=== PATIENT | male | born 1940 | race Caucasian/White ===

== ENCOUNTER 2017-08-25 07:49 | Inpatient (IN) | payer MEDICARE, BC ==
[~2017-08-25] VITALS: Ht 170.2 cm; Wt 74.3 kg
[2017-08-25 08:46] LABS: BASOPHILS # (AUTO) 0.1 X10'3 (0-0.2); BASOPHILS % (AUTO) 0.6 % (0-1); EOSINOPHILS % (AUTO) 0 % (0-6); HEMATOCRIT 31.5 % (42.0-52.0); HEMOGLOBIN 10.6 g/dl (14.0-17.9); LYMPHOCYTES # (AUTO) 0.9 X10'3 (1.1-4.8); LYMPHOCYTES % (AUTO) 3.9 % (21-51); MEAN CORPUSCULAR HEMOGLOBIN 30.4 PG (27.0-31.0); MEAN CORPUSCULAR HGB CONC 33.6 % (33.0-36.5); MEAN CORPUSCULAR VOLUME 90.6 FL (78-98); MEAN PLATELET VOLUME 8.8 FL (7.4-10.4); MONOCYTES # (AUTO) 1.5 X10'3 (0-0.9); MONOCYTES % (AUTO) 6.7 % (2-12); NEUTROPHILS # (AUTO) 19.7 X10'3 (1.8-7.7); NEUTROPHILS % (AUTO) 88.8 % (42-75); PLATELET COUNT 301 X10'3 (140-440); RED BLOOD COUNT 3.48 X10'6 (4.70-6.10); RED CELL DISTRIBUTION WIDTH 15.3 % (11.5-14.5); WHITE BLOOD COUNT 22.2 X10'3 (4.5-11.0)
[2017-08-25 09:04] LABS: INR 1.2 INR; PARTIAL THROMBOPLASTIN TIME 21 SECONDS (22-32); PROTHROMBIN TIME 12.3 SECONDS (9.0-12.0)
[2017-08-25 09:07] LABS: ALANINE AMINOTRANSFERASE 419 U/L (12-78); ALBUMIN 2.7 G/DL (3.4-5.0); ALBUMIN/GLOBULIN RATIO 0.8 (1.1-1.5); ALKALINE PHOSPHATASE 78 IU/L (46-116); ANION GAP 15 (8-16); ASPARTATE AMINO TRANSFERASE 303 U/L (10-37); BILIRUBIN,TOTAL 1.2 MG/DL (0.1-1.0); BLOOD UREA NITROGEN 26 MG/DL (7-18); BUN/CREATININE RATIO 16.7 (5.4-32.0); CALCIUM 8.1 MG/DL (8.5-10.1); CHLORIDE 101 MMOL/L (99-107); CREATININE 1.56 MG/DL (0.60-1.10); GLUCOSE 106 MG/DL (70-104); POTASSIUM 4.1 MMOL/L (3.5-5.1); SODIUM 142 MMOL/L (135-145); TOTAL CARBON DIOXIDE 26.2 MMOL/L (24-32); TOTAL PROTEIN 6.3 G/DL (6.4-8.2); eGFR 43 ML/MIN
[2017-08-25 09:16] LABS: ETHANOL < 0.010 GM/DL (0.0-0.010); MAGNESIUM 2.1 MG/DL (1.5-2.4)
[2017-08-25 09:40] LABS: URINE AMPHETAMINE SCREEN NEGATIVE (Neg); URINE BARBITUATE SCREEN NEGATIVE (Neg); URINE BENZODIAZEPINES SCREEN NEGATIVE (Neg); URINE CANNABINOID SCREEN NEGATIVE (Neg); URINE COCAINE SCREEN NEGATIVE (Neg); URINE METHADONE SCREEN NEGATIVE (Neg); URINE OPIATE SCREEN POSITIVE (Neg); URINE PHENCYCLIDINE SCREEN NEGATIVE (Neg)
[2017-08-25 09:43] LABS: CLARITY,URINE CLEAR (Clear); COLOR,URINE YELLOW (Yellow); GLUCOSE, URINE NEGATIVE (Neg); KETONES,URINE 15 mg/dl (Neg); LEUKOCYTE ESTERASE ,URINE NEGATIVE (Neg); NITRITES, URINE NEGATIVE (Neg); OCCULT BLOOD,URINE TRACE-LYSED (Neg); PH,URINE 5.5 (4.8-8.0); PROTEIN,URINE 30 mg/dl (Neg); UROBILINOGEN,URINE 0.2 E.U/dL (0.2-1.0)
[2017-08-25 09:48] LABS: UA COLLECTION TYPE URINAL
[2017-08-25 09:50] LABS: SQUAMOUS EPITHELIAL CELL,UR FEW /LPF (FEW)
[2017-08-25 09:51] LABS: BACTERIA,URINE FEW /HPF (Neg); FINE GRANULAR CAST 0-3 /LPF (NEGATIVE); MUCUS STRANDS MODERATE /LPF (Neg); RBC,URINE 0-2 /HPF (0-2); WBC,URINE 0-4 /HPF (0-4)
[2017-08-25] MEDS ORDERED: magnesium Cl slow-release 64mg tablet PO PRN (10:10)
[2017-08-25] MEDS ORDERED: potassium Cl 20 mEq SR tablet PO PRN (10:10)
[2017-08-25] MEDS ORDERED: magnesium hydroxide 30ml (MOM) UD suspension PO PRN (10:10)
[2017-08-25] MEDS ORDERED: potassium Cl 40MEQ/NS 500ml 500 ML IV PRN ×2 (10:10)
[2017-08-25] MEDS ORDERED: magnesium/D5W IVPB 100 ML IV PRN (10:10)
[2017-08-25] MEDS ORDERED: magnesium 4gm in 100ml NS 100 ML IV PRN (10:10)
[2017-08-25] MEDS ORDERED: mag hydrox/Alum hydrox/simeth 30ml oral suspension PO PRN (10:10)
[2017-08-25] MEDS ORDERED: acetaminophen 325mg tablet PO PRN (10:10)
[2017-08-25] MEDS ORDERED: ondansetron/PF 4mg/2ml inj IV PRN (10:10)
[2017-08-25] MEDS: K and/or MAG REPLACEMENT MC SCH (10:18)
[2017-08-25] MEDS: normal saline 1000ml 1,000 ML IV SCH (10:44)
[2017-08-25 16:10] VITALS: BP 127/93
[2017-08-25 18:00] VITALS: BP 110/72
[2017-08-25] MEDS: acetylcysteine 200 MG/ml 4ml vial PO SCH (20:06)
[2017-08-25] MEDS: carVEDilol 3.125mg tablet PO SCH (20:06)
[2017-08-25 20:10] LABS: HEMATOCRIT 29.6 % (42.0-52.0); HEMOGLOBIN 9.3 g/dl (14.0-17.9); MEAN CORPUSCULAR HGB CONC 31.3 % (33.0-36.5); MEAN CORPUSCULAR VOLUME 89.6 FL (78-98); MEAN PLATELET VOLUME 9.1 FL (7.4-10.4); PLATELET COUNT 260 X10'3 (140-440); RED BLOOD COUNT 3.31 X10'6 (4.70-6.10); RED CELL DISTRIBUTION WIDTH 15.5 % (11.5-14.5); WHITE BLOOD COUNT 18.2 X10'3 (4.5-11.0)
[2017-08-25] MEDS: atorvastatin 10mg tablet PO SCH (20:11)
[2017-08-25 20:24] LABS: TOTAL CARBON DIOXIDE 26.8 MMOL/L (24-32)
[2017-08-25 20:26] LABS: ACETAMINOPHEN < 2.0 UG/ML (10-30)
[2017-08-25] MEDS ORDERED: SIMV40TA4 PO (20:36)
[2017-08-25] MEDS ORDERED: LEVO137T2 PO (20:37)
[2017-08-25] MEDS ORDERED: AMLO5TAB4 PO (20:38)
[2017-08-25] MEDS ORDERED: NITR0.4T SL (20:38)
[2017-08-25] MEDS ORDERED: OMEP20TA23 PO (20:39)
[2017-08-25] MEDS ORDERED: LOSA100T28 PO (20:39)
[2017-08-25 20:40] VITALS: BP 120/83
[2017-08-25] MEDS ORDERED: BACL10TA PO (20:40)
[2017-08-25] MEDS ORDERED: METO25TA6 PO (20:40)
[2017-08-25] MEDS ORDERED: pravastatin 10mg tablet PO SCH (21:00)
[2017-08-25] MEDS ORDERED: heparin 10,000 units/1 ML INJ IV ONE (21:30)
[2017-08-25 22:00] VITALS: BP 108/81
[2017-08-25 22:13] LABS: BASOPHILS % (AUTO) 0.2 % (0-1); EOSINOPHILS # (AUTO) 0.2 X10'3 (0-0.9); EOSINOPHILS % (AUTO) 1.5 % (0-6); HEMATOCRIT 27.5 % (42.0-52.0); HEMOGLOBIN 9.1 g/dl (14.0-17.9); LYMPHOCYTES # (AUTO) 1.3 X10'3 (1.1-4.8); LYMPHOCYTES % (AUTO) 8.6 % (21-51); MEAN CORPUSCULAR HEMOGLOBIN 29.4 PG (27.0-31.0); MEAN CORPUSCULAR VOLUME 89.3 FL (78-98); NEUTROPHILS # (AUTO) 11.6 X10'3 (1.8-7.7); NEUTROPHILS % (AUTO) 76.7 % (42-75); PLATELET COUNT 253 X10'3 (140-440); RED BLOOD COUNT 3.08 X10'6 (4.70-6.10); RED CELL DISTRIBUTION WIDTH 16.1 % (11.5-14.5); WHITE BLOOD COUNT 15.1 X10'3 (4.5-11.0)
[2017-08-25 22:25] LABS: INR 1.2 INR; PARTIAL THROMBOPLASTIN TIME 28 SECONDS (22-32); PROTHROMBIN TIME 12.2 SECONDS (9.0-12.0)
[2017-08-25] MEDS: temazepam 15mg capsule PO PRN (23:03)
[2017-08-26 02:00] VITALS: BP 129/87
[2017-08-26 05:45] LABS: BASOPHILS % (AUTO) 0.1 % (0-1); EOSINOPHILS # (AUTO) 0.3 X10'3 (0-0.9); EOSINOPHILS % (AUTO) 1.9 % (0-6); HEMATOCRIT 27.4 % (42.0-52.0); LYMPHOCYTES # (AUTO) 1.5 X10'3 (1.1-4.8); LYMPHOCYTES % (AUTO) 10.4 % (21-51); MEAN CORPUSCULAR HEMOGLOBIN 29.7 PG (27.0-31.0); MEAN CORPUSCULAR VOLUME 89.9 FL (78-98); MONOCYTES # (AUTO) 1.4 X10'3 (0-0.9); NEUTROPHILS # (AUTO) 10.9 X10'3 (1.8-7.7); NEUTROPHILS % (AUTO) 77.6 % (42-75); PLATELET COUNT 245 X10'3 (140-440); RED BLOOD COUNT 3.05 X10'6 (4.70-6.10); RED CELL DISTRIBUTION WIDTH 15.9 % (11.5-14.5)
[2017-08-26 05:59] LABS: ALANINE AMINOTRANSFERASE 322 U/L (12-78); ALBUMIN 2.4 G/DL (3.4-5.0); ALBUMIN/GLOBULIN RATIO 0.7 (1.1-1.5); ALKALINE PHOSPHATASE 65 IU/L (46-116); ANION GAP 6 (8-16); ASPARTATE AMINO TRANSFERASE 176 U/L (10-37); BILIRUBIN,TOTAL 0.8 MG/DL (0.1-1.0); BLOOD UREA NITROGEN 28 MG/DL (7-18); CALCIUM 7.4 MG/DL (8.5-10.1); CHLORIDE 104 MMOL/L (99-107); GLUCOSE 139 MG/DL (70-104); POTASSIUM 3.9 MMOL/L (3.5-5.1); SODIUM 141 MMOL/L (135-145); TOTAL CARBON DIOXIDE 30.6 MMOL/L (24-32); TOTAL PROTEIN 5.7 G/DL (6.4-8.2); eGFR 49 ML/MIN
[2017-08-26] MEDS: heparin 10,000 units/1 ML INJ IV PRN (06:24)
[2017-08-26 07:08] VITALS: BP 125/87
[2017-08-26] MEDS: acetylcysteine 200 MG/ml 4ml vial PO SCH (08:00)
[2017-08-26] MEDS: enoxaparin 40mg/0.4ml syringe SUBCUT SCH (08:00)
[2017-08-26] MEDS ORDERED: acetylcysteine 200 MG/ml 4ml vial PO ONE (08:15)
[2017-08-26] MEDS ORDERED: SODIUM CHLORIDE 0.45% IV ONE (08:35)
[2017-08-26] MEDS ORDERED: ACETYLCYSTEINE IV ONE ×2 (08:35→08:40)
[2017-08-26] MEDS ORDERED: WATER IV ONE (08:40)
[2017-08-26] MEDS ORDERED: DEXTROSE 5% IV ONE (08:40)
[2017-08-26] MEDS: carVEDilol 3.125mg tablet PO SCH ×2 (08:59→21:12)
[2017-08-26] MEDS: levoFLOXACIN 500mg tablet PO SCH (08:59)
[2017-08-26] MEDS: aspirin 81mg tab.chew PO SCH (08:59)
[2017-08-26] MEDS: normal saline 1000ml 1,000 ML IV SCH (09:07)
[2017-08-26 09:31] LABS: CREATINE KINASE 285 U/L (39-308)
[2017-08-26] MEDS ORDERED: ALPRAZolam 0.25mg tablet PO ONE (10:20)
[2017-08-26 11:00] VITALS: BP 133/93
[2017-08-26 12:21] LABS: URINE AMPHETAMINE SCREEN NEGATIVE (Neg); URINE BARBITUATE SCREEN NEGATIVE (Neg); URINE BENZODIAZEPINES SCREEN NEGATIVE (Neg); URINE CANNABINOID SCREEN NEGATIVE (Neg); URINE COCAINE SCREEN NEGATIVE (Neg); URINE METHADONE SCREEN NEGATIVE (Neg); URINE OPIATE SCREEN POSITIVE (Neg); URINE PHENCYCLIDINE SCREEN NEGATIVE (Neg)
[2017-08-26 13:15] LABS: ALANINE AMINOTRANSFERASE 301 U/L (12-78); ASPARTATE AMINO TRANSFERASE 126 U/L (10-37); CREATINE KINASE 260 U/L (39-308)
[2017-08-26 13:51] LABS: TROPONIN I 7.74 NG/ML (0.0-0.05)
[2017-08-26 15:00] VITALS: BP 135/87
[2017-08-26] MEDS ORDERED: temazepam 15mg capsule PO ONE (17:40)
[2017-08-26 18:00] VITALS: BP 148/90
[2017-08-26] MEDS: lactobacillus rhamnosus 10,000 MMU CELLS/CAPSULE PO SCH (21:12)
[2017-08-26] MEDS: atorvastatin 10mg tablet PO SCH (21:12)
[2017-08-26 22:00] VITALS: BP 142/90
[2017-08-26] MEDS: acetaminophen 325mg tablet PO PRN (23:21)
[2017-08-27 02:00] VITALS: BP 123/84
[2017-08-27 03:27] LABS: BASOPHILS % (AUTO) 0.1 % (0-1); EOSINOPHILS # (AUTO) 0.1 X10'3 (0-0.9); HEMOGLOBIN 8.9 g/dl (14.0-17.9); LYMPHOCYTES # (AUTO) 1.1 X10'3 (1.1-4.8); MEAN CORPUSCULAR HEMOGLOBIN 29.8 PG (27.0-31.0); MEAN CORPUSCULAR HGB CONC 33.1 % (33.0-36.5); MEAN CORPUSCULAR VOLUME 90.1 FL (78-98); MEAN PLATELET VOLUME 8.5 FL (7.4-10.4); MONOCYTES # (AUTO) 1.2 X10'3 (0-0.9); MONOCYTES % (AUTO) 11.6 % (2-12); NEUTROPHILS # (AUTO) 8.2 X10'3 (1.8-7.7); NEUTROPHILS % (AUTO) 77.3 % (42-75); PLATELET COUNT 195 X10'3 (140-440); RED BLOOD COUNT 2.99 X10'6 (4.70-6.10); RED CELL DISTRIBUTION WIDTH 15.9 % (11.5-14.5); WHITE BLOOD COUNT 10.6 X10'3 (4.5-11.0)
[2017-08-27 04:19] LABS: ALANINE AMINOTRANSFERASE 274 U/L (12-78); ALBUMIN 2.1 G/DL (3.4-5.0); ALBUMIN/GLOBULIN RATIO 0.7 (1.1-1.5); ALKALINE PHOSPHATASE 59 IU/L (46-116); ANION GAP 6 (8-16); ASPARTATE AMINO TRANSFERASE 96 U/L (10-37); BILIRUBIN,TOTAL 0.6 MG/DL (0.1-1.0); BLOOD UREA NITROGEN 21 MG/DL (7-18); BUN/CREATININE RATIO 18.9 (5.4-32.0); CALCIUM 7.6 MG/DL (8.5-10.1); CHLORIDE 103 MMOL/L (99-107); CREATININE 1.11 MG/DL (0.60-1.10); GLUCOSE 106 MG/DL (70-104); MAGNESIUM 1.9 MG/DL (1.5-2.4); SODIUM 139 MMOL/L (135-145); TOTAL CARBON DIOXIDE 29.7 MMOL/L (24-32); TOTAL PROTEIN 5.1 G/DL (6.4-8.2); eGFR 64 ML/MIN
[2017-08-27] MEDS: normal saline 1000ml 1,000 ML IV SCH (04:22)
[2017-08-27] MEDS: potassium Cl 20 mEq SR tablet PO PRN ×3 (04:27→14:14)
[2017-08-27 07:00] VITALS: BP 133/95
[2017-08-27] MEDS: K and/or MAG REPLACEMENT MC SCH (08:00)
[2017-08-27] MEDS: lactobacillus rhamnosus 10,000 MMU CELLS/CAPSULE PO SCH ×2 (08:49→19:35)
[2017-08-27] MEDS: carVEDilol 3.125mg tablet PO SCH ×2 (08:49→19:35)
[2017-08-27] MEDS: levoFLOXACIN 500mg tablet PO SCH (08:50)
[2017-08-27] MEDS: enoxaparin 40mg/0.4ml syringe SUBCUT SCH (08:50)
[2017-08-27] MEDS: aspirin 81mg tab.chew PO SCH (08:50)
[2017-08-27] MEDS: LORazepam 0.5 MG tablet PO PRN ×3 (10:16→19:38)
[2017-08-27 11:00] VITALS: BP 128/91
[2017-08-27 15:00] VITALS: BP 121/87
[2017-08-27 19:00] VITALS: BP 129/89
[2017-08-27] MEDS: atorvastatin 10mg tablet PO SCH (21:05)
[2017-08-27 23:00] VITALS: BP 122/83
[2017-08-28] MEDS: normal saline 1000ml 1,000 ML IV SCH (00:57)
[2017-08-28 02:27] LABS: BASOPHILS % (AUTO) 0.3 % (0-1); EOSINOPHILS % (AUTO) 0.1 % (0-6); HEMATOCRIT 27.4 % (42.0-52.0); LYMPHOCYTES # (AUTO) 1.1 X10'3 (1.1-4.8); LYMPHOCYTES % (AUTO) 10.1 % (21-51); MEAN CORPUSCULAR HEMOGLOBIN 29.7 PG (27.0-31.0); MEAN CORPUSCULAR HGB CONC 32.9 % (33.0-36.5); MEAN CORPUSCULAR VOLUME 90.2 FL (78-98); MEAN PLATELET VOLUME 9.3 FL (7.4-10.4); MONOCYTES % (AUTO) 9.1 % (2-12); NEUTROPHILS # (AUTO) 8.5 X10'3 (1.8-7.7); NEUTROPHILS % (AUTO) 80.4 % (42-75); PLATELET COUNT 182 X10'3 (140-440); RED BLOOD COUNT 3.04 X10'6 (4.70-6.10); RED CELL DISTRIBUTION WIDTH 16.2 % (11.5-14.5); WHITE BLOOD COUNT 10.6 X10'3 (4.5-11.0)
[2017-08-28 02:40] LABS: ALANINE AMINOTRANSFERASE 230 U/L (12-78); ALBUMIN 2.3 G/DL (3.4-5.0); ALBUMIN/GLOBULIN RATIO 0.7 (1.1-1.5); ALKALINE PHOSPHATASE 71 IU/L (46-116); ANION GAP 8 (8-16); ASPARTATE AMINO TRANSFERASE 57 U/L (10-37); BILIRUBIN,TOTAL 0.7 MG/DL (0.1-1.0); BLOOD UREA NITROGEN 19 MG/DL (7-18); BUN/CREATININE RATIO 19.2 (5.4-32.0); CALCIUM 7.4 MG/DL (8.5-10.1); CHLORIDE 105 MMOL/L (99-107); CREATININE 0.99 MG/DL (0.60-1.10); GLUCOSE 106 MG/DL (70-104); MAGNESIUM 1.9 MG/DL (1.5-2.4); POTASSIUM 4.3 MMOL/L (3.5-5.1); SODIUM 139 MMOL/L (135-145); TOTAL PROTEIN 5.5 G/DL (6.4-8.2); eGFR 73 ML/MIN
[2017-08-28 03:00] VITALS: BP 135/98
[2017-08-28] MEDS: heparin 10,000 units/1 ML INJ IV PRN (03:13)
[2017-08-28 05:21] LABS: ABG BASE EXCESS 1.1 mmol/L (-2.0-3.0); ABG HCO3 24.2 mmol/L (22.0-26.0); ABG OXYGEN SATURATION 97.1 % (95-98); ABG PCO2 (T) 32.5 mmHg (35.0-48.0); ABG PH (T) 7.489 (7.350-7.450); ABG PO2 (T) 94.8 mmHg (83-108); ALLEN'S TEST Positive; FCOHb 0.2 % (0.5-1.5); FLOW 2 L/min; FMetHb 0.3 % (0.3-1.12); FO2Hb 96.6 % (94-100); TOTAL HEMOGLOBIN 9.7 G/dl (14.0-18.0)
[2017-08-28 05:25] LABS: ABG BASE EXCESS 0.5 mmol/L (-2.0-3.0); ABG HCO3 23.1 mmol/L (22.0-26.0); ABG OXYGEN SATURATION 95.2 % (95-98); ABG PCO2 (T) 30.3 mmHg (35.0-48.0); ABG PO2 (T) 68.4 mmHg (83-108); ALLEN'S TEST Positive; FCOHb 18.8 % (0.5-1.5); FMetHb 0.3 % (0.3-1.12); TOTAL HEMOGLOBIN 10.7 G/dl (14.0-18.0)
[2017-08-28 05:25] LABS: ABG BASE EXCESS 6.1 mmol/L (-2.0-3.0); ABG OXYGEN SATURATION 99.2 % (95-98); ABG PCO2 (T) 40.5 mmHg (35.0-48.0); ABG PH (T) 7.487 (7.350-7.450); ABG PO2 (T) 205.7 mmHg (83-108); ALLEN'S TEST Positive; FCOHb 0.6 % (0.5-1.5); FLOW 10 L/min; FMetHb 0.3 % (0.3-1.12); FO2Hb 98.3 % (94-100); TOTAL HEMOGLOBIN 10.2 G/dl (14.0-18.0)
[2017-08-28 05:26] LABS: ABG BASE EXCESS 2.9 mmol/L (-2.0-3.0); ABG HCO3 25.4 mmol/L (22.0-26.0); ABG OXYGEN SATURATION 95.7 % (95-98); ABG PCO2 (T) 32.3 mmHg (35.0-48.0); ABG PH (T) 7.513 (7.350-7.450); ALLEN'S TEST Positive; FCOHb 1.6 % (0.5-1.5); FMetHb 0.3 % (0.3-1.12); FO2Hb 93.9 % (94-100); TOTAL HEMOGLOBIN 13.5 G/dl (14.0-18.0)
[2017-08-28 05:26] LABS: ABG BASE EXCESS 4.7 mmol/L (-2.0-3.0); ABG HCO3 27.3 mmol/L (22.0-26.0); ABG OXYGEN SATURATION 94.4 % (95-98); ABG PH (T) 7.536 (7.350-7.450); ABG PO2 (T) 69.3 mmHg (83-108); ALLEN'S TEST Positive; FCOHb 0.8 % (0.5-1.5); FMetHb 0.3 % (0.3-1.12); FO2Hb 93.4 % (94-100); TOTAL HEMOGLOBIN 9.8 G/dl (14.0-18.0)
[2017-08-28 05:26] LABS: ABG BASE EXCESS 2.5 mmol/L (-2.0-3.0); ABG HCO3 25.4 mmol/L (22.0-26.0); ABG OXYGEN SATURATION 95.1 % (95-98); ABG PCO2 (T) 32.9 mmHg (35.0-48.0); ABG PH (T) 7.505 (7.350-7.450); ALLEN'S TEST Positive; FCOHb 0.3 % (0.5-1.5); FMetHb 0.3 % (0.3-1.12); FO2Hb 94.5 % (94-100); TOTAL HEMOGLOBIN 9.8 G/dl (14.0-18.0)
[2017-08-28 06:00] VITALS: BP 126/88
[2017-08-28] MEDS: K and/or MAG REPLACEMENT MC SCH (08:00)
[2017-08-28] MEDS: levoFLOXACIN 500mg tablet PO SCH (08:42)
[2017-08-28] MEDS: furosemide 40mg/4ml inj IV SCH ×2 (08:42→19:29)
[2017-08-28] MEDS: carVEDilol 3.125mg tablet PO SCH ×2 (08:43→19:30)
[2017-08-28] MEDS: lactobacillus rhamnosus 10,000 MMU CELLS/CAPSULE PO SCH ×2 (08:43→19:30)
[2017-08-28] MEDS: potassium Cl 20 mEq SR tablet PO SCH ×2 (08:43→17:05)
[2017-08-28] MEDS: aspirin 81mg tab.chew PO SCH (08:43)
[2017-08-28] MEDS: enoxaparin 40mg/0.4ml syringe SUBCUT SCH ×2 (08:43→16:34)
[2017-08-28 10:13] LABS: BASOPHILS % (AUTO) 0.5 % (0-1); EOSINOPHILS # (AUTO) 0.2 X10'3 (0-0.9); EOSINOPHILS % (AUTO) 1.6 % (0-6); HEMATOCRIT 30.5 % (42.0-52.0); HEMOGLOBIN 9.9 g/dl (14.0-17.9); LYMPHOCYTES # (AUTO) 0.8 X10'3 (1.1-4.8); LYMPHOCYTES % (AUTO) 8.1 % (21-51); MEAN CORPUSCULAR HEMOGLOBIN 29.6 PG (27.0-31.0); MEAN CORPUSCULAR HGB CONC 32.6 % (33.0-36.5); MEAN CORPUSCULAR VOLUME 90.5 FL (78-98); MEAN PLATELET VOLUME 9.1 FL (7.4-10.4); MONOCYTES # (AUTO) 0.7 X10'3 (0-0.9); MONOCYTES % (AUTO) 7.3 % (2-12); NEUTROPHILS # (AUTO) 8.1 X10'3 (1.8-7.7); NEUTROPHILS % (AUTO) 82.5 % (42-75); PLATELET COUNT 244 X10'3 (140-440); RED BLOOD COUNT 3.37 X10'6 (4.70-6.10); RED CELL DISTRIBUTION WIDTH 16.3 % (11.5-14.5); WHITE BLOOD COUNT 9.9 X10'3 (4.5-11.0)
[2017-08-28 11:00] VITALS: BP 111/74
[2017-08-28 15:00] VITALS: BP 127/81
[2017-08-28 19:00] VITALS: BP 125/87
[2017-08-28] MEDS: lisinopril 5mg tablet PO SCH (21:53)
[2017-08-28] MEDS: atorvastatin 10mg tablet PO SCH (21:53)
[2017-08-28 23:00] VITALS: BP_SYST 130; BP_SYST 140; BP_DIAS 77; BP_DIAS 89
[2017-08-28] MEDS: temazepam 15mg capsule PO PRN (23:10)
[2017-08-29] VITALS (8 sets, daily range): BP systolic 98–119; BP diastolic 58–81
[2017-08-29 06:15] LABS: BASOPHILS % (AUTO) 0.5 % (0-1); EOSINOPHILS # (AUTO) 0.2 X10'3 (0-0.9); HEMATOCRIT 26.8 % (42.0-52.0); HEMOGLOBIN 8.9 g/dl (14.0-17.9); LYMPHOCYTES # (AUTO) 1.2 X10'3 (1.1-4.8); LYMPHOCYTES % (AUTO) 13.4 % (21-51); MEAN CORPUSCULAR HEMOGLOBIN 29.7 PG (27.0-31.0); MEAN CORPUSCULAR VOLUME 89.8 FL (78-98); MONOCYTES # (AUTO) 0.8 X10'3 (0-0.9); MONOCYTES % (AUTO) 8.8 % (2-12); NEUTROPHILS # (AUTO) 6.6 X10'3 (1.8-7.7); NEUTROPHILS % (AUTO) 75.3 % (42-75); PLATELET COUNT 192 X10'3 (140-440); RED BLOOD COUNT 2.99 X10'6 (4.70-6.10); WHITE BLOOD COUNT 8.8 X10'3 (4.5-11.0)
[2017-08-29 06:33] LABS: ANION GAP 6 (8-16); BILIRUBIN,TOTAL 0.5 MG/DL (0.1-1.0); BLOOD UREA NITROGEN 19 MG/DL (7-18); BUN/CREATININE RATIO 17.4 (5.4-32.0); CHLORIDE 103 MMOL/L (99-107); CREATININE 1.09 MG/DL (0.60-1.10); GLUCOSE 95 MG/DL (70-104); MAGNESIUM 1.8 MG/DL (1.5-2.4); SODIUM 138 MMOL/L (135-145); eGFR 65 ML/MIN
[2017-08-29 06:34] LABS: ALANINE AMINOTRANSFERASE 179 U/L (12-78); ALBUMIN 2.2 G/DL (3.4-5.0); ALBUMIN/GLOBULIN RATIO 0.7 (1.1-1.5); ALKALINE PHOSPHATASE 64 IU/L (46-116); ASPARTATE AMINO TRANSFERASE 38 U/L (10-37); TOTAL PROTEIN 5.2 G/DL (6.4-8.2)
[2017-08-29] MEDS: furosemide 40mg/4ml inj IV SCH ×2 (07:53→20:54)
[2017-08-29] MEDS: potassium Cl 20 mEq SR tablet PO SCH ×2 (07:54→17:08)
[2017-08-29] MEDS: lactobacillus rhamnosus 10,000 MMU CELLS/CAPSULE PO SCH ×2 (07:54→20:53)
[2017-08-29] MEDS: carVEDilol 3.125mg tablet PO SCH ×2 (07:54→21:22)
[2017-08-29] MEDS: aspirin 81mg tab.chew PO SCH ×2 (07:54→09:30)
[2017-08-29] MEDS: levoFLOXACIN 500mg tablet PO SCH (07:54)
[2017-08-29] MEDS: K and/or MAG REPLACEMENT MC SCH (08:00)
[2017-08-29] MEDS ORDERED: LIDOcaine 0.5% (5mg/ml) 50ml vial ONE (13:51)
[2017-08-29 15:09] LABS: BFSOURCE LEFT PLEURAL FLD; PLEURAL FLUID PH 7.605 (7.63-7.65)
[2017-08-29 15:20] LABS: GLUCOSE,BODY FLUID 113 MG/DL; LDH,BODY FLUID 135 U/L
[2017-08-29 15:38] LABS: TOTAL PROTEIN,BODY FLUID < 2.0 G/DL
[2017-08-29 16:22] LABS: BFAPPEAR CLOUDY
[2017-08-29 16:23] LABS: BF MESOTHELIAL CELLS FEW; BFCOLOR YELLOW; BFVOLUME 700 ML; LYMPHOCYTES,BODY FLUID 43 %; MONOCYTES,BODY FLUID 3 %; NEUTROPHILS,BODY FLUID 54 %
[2017-08-29 16:24] LABS: BF RBC COUNT 2760 /CU MM; BF WBC COUNT 210 /CU MM (0-1000)
[2017-08-29] MEDS: acetaminophen 325mg tablet PO PRN (20:52)
[2017-08-29] MEDS: atorvastatin 10mg tablet PO SCH (20:53)
[2017-08-29] MEDS: vancomycin/NS 1 GM ADD-VANTAGE 250 ML IV SCH (21:23)
[2017-08-29] MEDS: lisinopril 5mg tablet PO SCH (22:29)
[2017-08-29] MEDS: temazepam 15mg capsule PO PRN (22:29)
[2017-08-30 03:00] VITALS: BP 118/81
[2017-08-30 06:00] VITALS: BP 105/73
[2017-08-30 06:00] LABS: BASOPHILS % (AUTO) 0.2 % (0-1); EOSINOPHILS # (AUTO) 0.2 X10'3 (0-0.9); EOSINOPHILS % (AUTO) 2.4 % (0-6); HEMATOCRIT 28.7 % (42.0-52.0); HEMOGLOBIN 9.3 g/dl (14.0-17.9); LYMPHOCYTES % (AUTO) 12.1 % (21-51); MEAN CORPUSCULAR HEMOGLOBIN 29.4 PG (27.0-31.0); MEAN CORPUSCULAR HGB CONC 32.5 % (33.0-36.5); MEAN CORPUSCULAR VOLUME 90.4 FL (78-98); MEAN PLATELET VOLUME 9.1 FL (7.4-10.4); MONOCYTES # (AUTO) 0.5 X10'3 (0-0.9); MONOCYTES % (AUTO) 6.5 % (2-12); NEUTROPHILS # (AUTO) 6.6 X10'3 (1.8-7.7); NEUTROPHILS % (AUTO) 78.8 % (42-75); PLATELET COUNT 177 X10'3 (140-440); RED BLOOD COUNT 3.18 X10'6 (4.70-6.10); RED CELL DISTRIBUTION WIDTH 16.3 % (11.5-14.5); WHITE BLOOD COUNT 8.4 X10'3 (4.5-11.0)
[2017-08-30 06:13] LABS: ALANINE AMINOTRANSFERASE 156 U/L (12-78); ALBUMIN 2.2 G/DL (3.4-5.0); ALBUMIN/GLOBULIN RATIO 0.7 (1.1-1.5); ALKALINE PHOSPHATASE 67 IU/L (46-116); ANION GAP 7 (8-16); ASPARTATE AMINO TRANSFERASE 37 U/L (10-37); BILIRUBIN,TOTAL 0.5 MG/DL (0.1-1.0); BLOOD UREA NITROGEN 19 MG/DL (7-18); BUN/CREATININE RATIO 17.1 (5.4-32.0); CALCIUM 8.3 MG/DL (8.5-10.1); CHLORIDE 102 MMOL/L (99-107); CREATININE 1.11 MG/DL (0.60-1.10); GLUCOSE 95 MG/DL (70-104); MAGNESIUM 1.9 MG/DL (1.5-2.4); POTASSIUM 4.1 MMOL/L (3.5-5.1); SODIUM 139 MMOL/L (135-145); TOTAL CARBON DIOXIDE 30.4 MMOL/L (24-32); TOTAL PROTEIN 5.3 G/DL (6.4-8.2); eGFR 64 ML/MIN
[2017-08-30] MEDS: carVEDilol 3.125mg tablet PO SCH (07:21)
[2017-08-30] MEDS: levoFLOXACIN 500mg tablet PO SCH (07:21)
[2017-08-30] MEDS: lactobacillus rhamnosus 10,000 MMU CELLS/CAPSULE PO SCH (07:21)
[2017-08-30] MEDS: furosemide 40mg/4ml inj IV SCH (07:23)
[2017-08-30] MEDS: enoxaparin 40mg/0.4ml syringe SUBCUT SCH (07:26)
[2017-08-30] MEDS: vancomycin/NS 1 GM ADD-VANTAGE 250 ML IV SCH (07:27)
[2017-08-30] MEDS: K and/or MAG REPLACEMENT MC SCH (08:00)
[2017-08-30] MEDS: aspirin 81mg tab.chew PO SCH (09:15)
[2017-08-30] MEDS: potassium Cl 20 mEq SR tablet PO SCH (09:49)
[2017-08-30 11:00] VITALS: BP 96/62
[2017-08-30] MEDS ORDERED: LEVO500T89 PO ×2 (12:52→16:02)
[2017-08-30] MEDS ORDERED: LISI-604 PO ×2 (12:52→16:02)
[2017-08-30] MEDS ORDERED: FURO-150 PO ×2 (12:52→16:02)
[2017-08-30] MEDS ORDERED: POTA10TA36 PO (12:52)
[2017-08-30] MEDS ORDERED: ASPI-1265 PO (12:52)
[2017-08-30] MEDS ORDERED: ATI0.5T PO (12:52)
[2017-08-30] MEDS ORDERED: ENOX40DI11 SUBCUT (12:52)
[2017-08-30] MEDS ORDERED: COR3.125T PO (12:52)
[2017-08-30] MEDS ORDERED: CARV3.122 PO (16:02)
[2017-08-30] MEDS ORDERED: ENOX40SY7 SUBCUT (16:02)
[2017-08-30] MEDS ORDERED: ASPI81TA46 PO (16:02)
[2017-08-30] MEDS ORDERED: POTA10TA15 PO (16:02)
[2017-08-30] MEDS ORDERED: LORA-269 PO (16:02)
[2017-08-31] MEDS ORDERED: VANCOMYCIN LEVEL IV ONE (07:30)
== END 2017-08-30 14:40 | DRG 917 ==
LOC: EDBD 07:49 → ER 07:51 → ED HOLD 09:40 → EDBEDREQ 15:06 → PCU 3S 15:55
PROVIDERS: ADMIT Internal Medicine; ATTEND Internal Medicine
PROC: 0W9B3ZZ Drainage of Left Pleural Cavity, Percutaneous Approach (ICD-10-PCS; principal; 2017-08-29)
DX: T58.8X2A Toxic effect of carbon monoxide from other source, intentional self-harm, initial encounter (principal); I50.31 Acute diastolic (congestive) heart failure; I21.4 Non-ST elevation (NSTEMI) myocardial infarction; I13.0 Hypertensive heart and chronic kidney disease with heart failure and stage 1 through stage 4 chronic kidney disease, or unspecified chronic kidney disease; J90 Pleural effusion, not elsewhere classified; T59.7X2A Toxic effect of carbon dioxide, intentional self-harm, initial encounter; N18.3 Chronic kidney disease, stage 3 (moderate); D72.829 Elevated white blood cell count, unspecified; E03.9 Hypothyroidism, unspecified; E78.00 Pure hypercholesterolemia, unspecified; E78.5 Hyperlipidemia, unspecified; F41.9 Anxiety disorder, unspecified; I25.10 Atherosclerotic heart disease of native coronary artery without angina pectoris; R74.0 Nonspecific elevation of levels of transaminase and lactic acid dehydrogenase [LDH]; I08.1 Rheumatic disorders of both mitral and tricuspid valves; E87.6 Hypokalemia; K21.9 Gastro-esophageal reflux disease without esophagitis; Z60.2 Problems related to living alone; Z66 Do not resuscitate; Z90.49 Acquired absence of other specified parts of digestive tract; Z95.1 Presence of aortocoronary bypass graft; Z95.5 Presence of coronary angioplasty implant and graft; I25.2 Old myocardial infarction; Z79.82 Long term (current) use of aspirin; Z87.891 Personal history of nicotine dependence; V49.88XA Car occupant (driver) (passenger) injured in other specified transport accidents, initial encounter; Y93.89 Activity, other specified; Y92.89 Other specified places as the place of occurrence of the external cause; Y99.8 Other external cause status
CPT/HCPCS: 32555; 36415; 36600; 71045; 80053; 80305; 80320; 80329; 81001; 82374; 82550; 82803; 82945; 83605; 83615; 83735; 83880; 83986; 84157; 84443; 84450; 84460; 84484; 85018; 85025; 85027; 85610; 85730; 87070; 89051; 93005; 93306; 97110; 97116; 97161; 99291; A4620; A6212; J0132; J1644; J1650; J1940; J2001; J3370; J7030; J7060

== ENCOUNTER 2017-08-30 13:03 | Inpatient (IN) | payer MEDICARE, BC ==
[~2017-08-30] VITALS: Ht 172.7 cm; Wt 67.6 kg
[~2017-08-30 13:03] MED LIST: AMLO5TAB4 PO; ASPI-1265 PO; ATI0.5T PO; COR3.125T PO; ENOX40DI11 SUBCUT; FURO-150 PO; LEVO137T2 PO; LEVO500T89 PO; LISI-604 PO; LOSA100T28 PO; METO25TA6 PO; NITR0.4T SL; OMEP20TA23 PO; POTA10TA36 PO; SIMV40TA4 PO
[2017-08-30] MEDS ORDERED: LISI-604 PO (16:02)
[2017-08-30] MEDS ORDERED: ASPI81TA46 PO (16:02)
[2017-08-30] MEDS ORDERED: FURO-150 PO (16:02)
[2017-08-30] MEDS ORDERED: ENOX40SY7 SUBCUT (16:02)
[2017-08-30] MEDS ORDERED: POTA10TA15 PO (16:02)
[2017-08-30] MEDS ORDERED: CARV3.122 PO (16:02)
[2017-08-30] MEDS ORDERED: LEVO500T89 PO (16:02)
[2017-08-30] MEDS ORDERED: LORA-269 PO (16:02)
[2017-08-30] MEDS ORDERED: nitroGLYCERIN 0.4mg SUBLingual tab SL PRN (16:10)
[2017-08-30] MEDS ORDERED: aspirin 81mg tablet.DR PO ONE (16:10)
[2017-08-30 16:22] VITALS: BP 106/64
[2017-08-30 19:09] VITALS: BP 116/72
[2017-08-30 20:06] VITALS: BP 112/72
[2017-08-30] MEDS: LORazepam 1 MG tablet PO PRN (20:07)
[2017-08-30] MEDS: furosemide 20MG tablet PO SCH (20:08)
[2017-08-30] MEDS: traZODone 50mg tablet PO PRN ×2 (20:08→22:01)
[2017-08-30] MEDS: atorvastatin 20mg tablet PO SCH (20:09)
[2017-08-30] MEDS: carVEDilol 3.125mg tablet PO SCH (20:09)
[2017-08-31] MEDS: levoTHYROXINE 112mcg tablet PO SCH (07:43)
[2017-08-31] MEDS: levoTHYROXINE 25mcg tablet PO SCH (07:43)
[2017-08-31] MEDS: enoxaparin 40mg/0.4ml syringe SUBCUT SCH (07:48)
[2017-08-31] MEDS: carVEDilol 3.125mg tablet PO SCH ×2 (07:50→21:32)
[2017-08-31] MEDS: lisinopril 5mg tablet PO SCH (07:50)
[2017-08-31] MEDS: furosemide 20MG tablet PO SCH ×2 (07:50→21:32)
[2017-08-31] MEDS: levoFLOXACIN 500mg tablet PO SCH (07:51)
[2017-08-31] MEDS: potassium chloride 10mEq ER tablet PO SCH (07:51)
[2017-08-31] MEDS: pantoprazole 40mg Tablet.DR PO SCH (07:53)
[2017-08-31 08:19] VITALS: BP 122/75
[2017-08-31 19:00] VITALS: BP 127/79
[2017-08-31] MEDS: atorvastatin 20mg tablet PO SCH (21:32)
[2017-08-31] MEDS: LORazepam 1 MG tablet PO PRN (21:32)
[2017-08-31] MEDS: lactobacillus rhamnosus 10,000 MMU CELLS/CAPSULE PO SCH (21:32)
[2017-08-31] MEDS: traZODone 50mg tablet PO PRN (22:27)
[2017-09-01] MEDS ORDERED: temazepam 15mg capsule PO ONE (01:15)
[2017-09-01] MEDS: LORazepam 1 MG tablet PO PRN ×2 (03:40→20:12)
[2017-09-01 07:41] VITALS: BP 105/68
[2017-09-01] MEDS: levoTHYROXINE 112mcg tablet PO SCH (07:55)
[2017-09-01] MEDS: levoTHYROXINE 25mcg tablet PO SCH (07:55)
[2017-09-01] MEDS: venlafaxine XR 37.5mg cap (Q24H) PO SCH (07:56)
[2017-09-01] MEDS: lisinopril 5mg tablet PO SCH (07:56)
[2017-09-01] MEDS: potassium chloride 10mEq ER tablet PO SCH (07:56)
[2017-09-01] MEDS: lactobacillus rhamnosus 10,000 MMU CELLS/CAPSULE PO SCH ×2 (07:56→20:12)
[2017-09-01] MEDS: carVEDilol 3.125mg tablet PO SCH ×2 (07:56→20:12)
[2017-09-01] MEDS: furosemide 20MG tablet PO SCH ×2 (07:56→20:12)
[2017-09-01] MEDS: pantoprazole 40mg Tablet.DR PO SCH (07:56)
[2017-09-01] MEDS: levoFLOXACIN 500mg tablet PO SCH (07:56)
[2017-09-01] MEDS: enoxaparin 40mg/0.4ml syringe SUBCUT SCH (08:28)
[2017-09-01 19:00] VITALS: BP 109/67
[2017-09-01] MEDS: atorvastatin 20mg tablet PO SCH (20:12)
[2017-09-01] MEDS: traZODone 50mg tablet PO PRN (20:12)
[2017-09-01 22:30] VITALS: BP 117/78
[2017-09-02] MEDS: LORazepam 1 MG tablet PO PRN ×2 (03:23→22:03)
[2017-09-02 07:32] LABS: HEMOGLOBIN A1C 5.2 % (4.5-6.2)
[2017-09-02 07:47] LABS: CHOL/HDL RATIO 2.5 (0.00-4.99); CHOLESTEROL 114 MG/DL (0-200); HDL CHOLESTEROL 46 MG/DL (35-60); LDL CHOLESTEROL 61 MG/DL (50-100); TRIGLYCERIDES 99 MG/DL (20-135)
[2017-09-02 07:48] VITALS: BP 116/75
[2017-09-02] MEDS: levoTHYROXINE 112mcg tablet PO SCH (07:49)
[2017-09-02] MEDS: enoxaparin 40mg/0.4ml syringe SUBCUT SCH (07:49)
[2017-09-02] MEDS: pantoprazole 40mg Tablet.DR PO SCH (07:49)
[2017-09-02] MEDS: lisinopril 5mg tablet PO SCH (07:49)
[2017-09-02] MEDS: furosemide 20MG tablet PO SCH ×2 (07:49→20:51)
[2017-09-02] MEDS: levoTHYROXINE 25mcg tablet PO SCH (07:49)
[2017-09-02] MEDS: levoFLOXACIN 500mg tablet PO SCH (07:49)
[2017-09-02] MEDS: lactobacillus rhamnosus 10,000 MMU CELLS/CAPSULE PO SCH ×2 (07:49→20:50)
[2017-09-02] MEDS: venlafaxine XR 37.5mg cap (Q24H) PO SCH (07:50)
[2017-09-02] MEDS: carVEDilol 3.125mg tablet PO SCH ×2 (07:50→20:50)
[2017-09-02] MEDS: potassium chloride 10mEq ER tablet PO SCH (07:50)
[2017-09-02] MEDS ORDERED: tuberculin, purif. prot. deriv. 5 units/0.1ml ID ONE (11:30)
[2017-09-02 19:00] VITALS: BP 97/73
[2017-09-02 19:30] VITALS: BP 110/60
[2017-09-02] MEDS: atorvastatin 20mg tablet PO SCH (20:51)
[2017-09-02] MEDS: traZODone 50mg tablet PO PRN (22:03)
[2017-09-03] MEDS: traZODone 50mg tablet PO PRN ×2 (00:42→22:34)
[2017-09-03] MEDS: levoTHYROXINE 112mcg tablet PO SCH (07:54)
[2017-09-03] MEDS: levoTHYROXINE 25mcg tablet PO SCH (07:54)
[2017-09-03 08:00] VITALS: BP 117/67
[2017-09-03] MEDS: furosemide 20MG tablet PO SCH ×2 (08:52→20:22)
[2017-09-03] MEDS: levoFLOXACIN 500mg tablet PO SCH (08:52)
[2017-09-03] MEDS: potassium chloride 10mEq ER tablet PO SCH (08:52)
[2017-09-03] MEDS: pantoprazole 40mg Tablet.DR PO SCH (08:52)
[2017-09-03] MEDS: carVEDilol 3.125mg tablet PO SCH ×2 (08:52→20:22)
[2017-09-03] MEDS: lisinopril 5mg tablet PO SCH (08:52)
[2017-09-03] MEDS: lactobacillus rhamnosus 10,000 MMU CELLS/CAPSULE PO SCH ×2 (08:52→20:20)
[2017-09-03] MEDS: venlafaxine XR 37.5mg cap (Q24H) PO SCH (09:18)
[2017-09-03] MEDS: enoxaparin 40mg/0.4ml syringe SUBCUT SCH (12:10)
[2017-09-03] MEDS: Protein Smoothie (high protein) 240ml (8oz) cup PO SCH (18:00)
[2017-09-03 19:15] VITALS: BP 110/71
[2017-09-03] MEDS: atorvastatin 20mg tablet PO SCH (20:22)
[2017-09-03] MEDS: LORazepam 1 MG tablet PO PRN (22:35)
[2017-09-04] MEDS ORDERED: acetaminophen 325mg tablet PO ONE (03:15)
[2017-09-04] MEDS: traZODone 50mg tablet PO PRN (03:26)
[2017-09-04] MEDS: carVEDilol 3.125mg tablet PO SCH ×2 (07:30→20:29)
[2017-09-04] MEDS: lactobacillus rhamnosus 10,000 MMU CELLS/CAPSULE PO SCH ×2 (07:30→20:29)
[2017-09-04] MEDS: enoxaparin 40mg/0.4ml syringe SUBCUT SCH (07:30)
[2017-09-04] MEDS: levoTHYROXINE 112mcg tablet PO SCH (07:30)
[2017-09-04] MEDS: pantoprazole 40mg Tablet.DR PO SCH (07:30)
[2017-09-04] MEDS: venlafaxine XR 37.5mg cap (Q24H) PO SCH (07:30)
[2017-09-04] MEDS: potassium chloride 10mEq ER tablet PO SCH (07:30)
[2017-09-04] MEDS: levoTHYROXINE 25mcg tablet PO SCH (07:30)
[2017-09-04] MEDS: furosemide 20MG tablet PO SCH ×2 (07:31→20:31)
[2017-09-04 07:38] LABS: HEMATOCRIT 27.6 % (42.0-52.0); HEMOGLOBIN 9.1 g/dl (14.0-17.9); MEAN CORPUSCULAR HEMOGLOBIN 28.8 PG (27.0-31.0); MEAN CORPUSCULAR HGB CONC 33.1 % (33.0-36.5); MEAN CORPUSCULAR VOLUME 87.1 FL (78-98); MEAN PLATELET VOLUME 8.8 FL (7.4-10.4); PLATELET COUNT 123 X10'3 (140-440); RED BLOOD COUNT 3.16 X10'6 (4.70-6.10); RED CELL DISTRIBUTION WIDTH 16.2 % (11.5-14.5); WHITE BLOOD COUNT 5.2 X10'3 (4.5-11.0)
[2017-09-04] MEDS: lisinopril 2.5mg tablet PO SCH (07:38)
[2017-09-04 07:57] LABS: % IRON SATURATION 10 % (11-46); IRON 21 UG/DL (53-167); TOTAL IRON BINDING CAPACITY 220 UG/DL (259-388)
[2017-09-04 08:00] VITALS: BP 105/63
[2017-09-04 08:03] LABS: ALBUMIN 2.1 G/DL (3.4-5.0); ANION GAP 6 (8-16); BLOOD UREA NITROGEN 13 MG/DL (7-18); BUN/CREATININE RATIO 11.4 (5.4-32.0); CALCIUM 8.1 MG/DL (8.5-10.1); CHLORIDE 104 MMOL/L (99-107); CREATININE 1.14 MG/DL (0.60-1.10); GLUCOSE 89 MG/DL (70-104); POTASSIUM 3.9 MMOL/L (3.5-5.1); SODIUM 139 MMOL/L (135-145); TOTAL CARBON DIOXIDE 28.6 MMOL/L (24-32); eGFR 62 ML/MIN
[2017-09-04] MEDS ORDERED: venlafaxine XR 37.5mg cap (Q24H) PO ONE (08:10)
[2017-09-04] MEDS: Protein Smoothie (high protein) 240ml (8oz) cup PO SCH ×3 (08:51→18:00)
[2017-09-04] MEDS: LORazepam 1 MG tablet PO PRN (19:53)
[2017-09-04 20:08] VITALS: BP 123/78
[2017-09-04] MEDS: atorvastatin 20mg tablet PO SCH (20:30)
[2017-09-05] MEDS: levoTHYROXINE 112mcg tablet PO SCH (07:19)
[2017-09-05] MEDS: levoTHYROXINE 25mcg tablet PO SCH (07:19)
[2017-09-05] MEDS: furosemide 20MG tablet PO SCH ×2 (07:58→20:05)
[2017-09-05] MEDS: carVEDilol 3.125mg tablet PO SCH ×2 (07:59→20:05)
[2017-09-05] MEDS: lactobacillus rhamnosus 10,000 MMU CELLS/CAPSULE PO SCH ×2 (07:59→20:05)
[2017-09-05] MEDS: potassium chloride 10mEq ER tablet PO SCH (07:59)
[2017-09-05] MEDS: lisinopril 2.5mg tablet PO SCH (07:59)
[2017-09-05] MEDS: pantoprazole 40mg Tablet.DR PO SCH (07:59)
[2017-09-05] MEDS: venlafaxine XR 37.5mg cap (Q24H) PO SCH (07:59)
[2017-09-05 08:00] VITALS: BP 122/80
[2017-09-05] MEDS: Protein Smoothie (high protein) 240ml (8oz) cup PO SCH ×3 (08:06→18:00)
[2017-09-05] MEDS ORDERED: acetaminophen 325mg tablet PO PRN (11:00)
[2017-09-05] MEDS ORDERED: HYDROcodone/acetaminophen 5mg/325mg tablet PO PRN (17:05)
[2017-09-05] MEDS: LIDOcaine 5% patch TP SCH (17:45)
[2017-09-05 19:18] VITALS: BP 111/76
[2017-09-05] MEDS: traZODone 50mg tablet PO PRN ×2 (20:05→21:14)
[2017-09-05] MEDS: atorvastatin 20mg tablet PO SCH (20:14)
[2017-09-06] MEDS: LORazepam 1 MG tablet PO PRN (03:27)
[2017-09-06 08:00] VITALS: BP 108/73
[2017-09-06] MEDS: LIDOcaine 5% patch TP SCH (08:00)
[2017-09-06] MEDS: lisinopril 2.5mg tablet PO SCH (08:32)
[2017-09-06] MEDS: venlafaxine XR 37.5mg cap (Q24H) PO SCH (08:32)
[2017-09-06] MEDS: carVEDilol 3.125mg tablet PO SCH ×2 (08:32→20:04)
[2017-09-06] MEDS: potassium chloride 10mEq ER tablet PO SCH (08:32)
[2017-09-06] MEDS: lactobacillus rhamnosus 10,000 MMU CELLS/CAPSULE PO SCH ×2 (08:32→20:03)
[2017-09-06] MEDS: levoTHYROXINE 112mcg tablet PO SCH (08:33)
[2017-09-06] MEDS: pantoprazole 40mg Tablet.DR PO SCH (08:33)
[2017-09-06] MEDS: levoTHYROXINE 25mcg tablet PO SCH (08:34)
[2017-09-06] MEDS: furosemide 20MG tablet PO SCH ×2 (08:35→20:05)
[2017-09-06] MEDS: Protein Smoothie (high protein) 240ml (8oz) cup PO SCH ×3 (08:41→18:00)
[2017-09-06 19:11] VITALS: BP 102/67
[2017-09-06] MEDS: mirtazapine 15mg tablet PO SCH (20:04)
[2017-09-06] MEDS: atorvastatin 20mg tablet PO SCH (20:04)
[2017-09-06] MEDS: traZODone 50mg tablet PO PRN (21:51)
[2017-09-07 08:12] VITALS: BP 127/72
[2017-09-07] MEDS: levoTHYROXINE 25mcg tablet PO SCH (08:12)
[2017-09-07] MEDS: carVEDilol 3.125mg tablet PO SCH ×2 (08:12→21:13)
[2017-09-07] MEDS: furosemide 20MG tablet PO SCH ×2 (08:12→21:12)
[2017-09-07] MEDS: levoTHYROXINE 112mcg tablet PO SCH (08:12)
[2017-09-07] MEDS: lactobacillus rhamnosus 10,000 MMU CELLS/CAPSULE PO SCH ×2 (08:12→21:13)
[2017-09-07] MEDS: potassium chloride 10mEq ER tablet PO SCH (08:13)
[2017-09-07] MEDS: lisinopril 2.5mg tablet PO SCH (08:13)
[2017-09-07] MEDS: pantoprazole 40mg Tablet.DR PO SCH (08:13)
[2017-09-07] MEDS: venlafaxine XR 37.5mg cap (Q24H) PO SCH (08:13)
[2017-09-07] MEDS: Protein Smoothie (high protein) 240ml (8oz) cup PO SCH ×3 (08:16→18:43)
[2017-09-07] MEDS: LIDOcaine 5% patch TP SCH (08:58)
[2017-09-07 11:57] VITALS: BP 103/64
[2017-09-07] MEDS ORDERED: aspirin 81mg tab.chew PO ONE ×2 (12:50→21:55)
[2017-09-07] MEDS: hydrocortisone 1% cream 28gm TP SCH ×2 (16:53→20:00)
[2017-09-07 20:06] VITALS: BP 112/76
[2017-09-07 21:10] VITALS: BP 103/68
[2017-09-07] MEDS: traZODone 50mg tablet PO PRN (21:12)
[2017-09-07] MEDS: mirtazapine 15mg tablet PO SCH (21:13)
[2017-09-07] MEDS: atorvastatin 20mg tablet PO SCH (21:14)
[2017-09-07 23:45] VITALS: BP 113/72
[2017-09-08] MEDS ORDERED: aspirin 81mg tab.chew PO SCH (08:30)
[2017-09-08] MEDS ORDERED: VENL75CA55 PO (09:50)
== END 2017-09-07 23:45 | disposition short-term general hospital (02) | DRG 881 ==
LOC: ADULT MH 13:03
PROVIDERS: ADMIT Psychiatry & Neurology Psychiatry; ATTEND Psychiatry & Neurology Psychiatry
DX: F32.9 Major depressive disorder, single episode, unspecified (principal); I50.33 Acute on chronic diastolic (congestive) heart failure; E43 Unspecified severe protein-calorie malnutrition; R45.851 Suicidal ideations; N17.9 Acute kidney failure, unspecified; M19.90 Unspecified osteoarthritis, unspecified site; I25.10 Atherosclerotic heart disease of native coronary artery without angina pectoris; K21.9 Gastro-esophageal reflux disease without esophagitis; D64.9 Anemia, unspecified; M25.552 Pain in left hip; M25.562 Pain in left knee; M54.9 Dorsalgia, unspecified; E03.9 Hypothyroidism, unspecified; E78.5 Hyperlipidemia, unspecified; F41.9 Anxiety disorder, unspecified; I11.0 Hypertensive heart disease with heart failure; Z95.1 Presence of aortocoronary bypass graft; Z68.22 Body mass index [BMI] 22.0-22.9, adult
CPT/HCPCS: 36415; 73502; 73564; 80048; 80061; 82607; 82746; 83036; 83540; 83550; 83880; 84443; 84484; 85027; 87070; 93005; 93971; 97116; 99285; A6212; A6213; A6257; J1650

== ENCOUNTER 2017-09-07 23:18 | Observation (INO) | payer MEDICARE, BC ==
[~2017-09-07 23:18] MED LIST changes: -AMLO5TAB4 PO; -ASPI-1265 PO; +ASPI81TA46 PO; -ATI0.5T PO; +CARV3.122 PO; -COR3.125T PO; -ENOX40DI11 SUBCUT; +ENOX40SY7 SUBCUT; +LORA-269 PO; -LOSA100T28 PO; -METO25TA6 PO; +POTA10TA15 PO; -POTA10TA36 PO
[2017-09-08] VITALS (7 sets, daily range): BP systolic 98–123; BP diastolic 64–77
[2017-09-08] MEDS ORDERED: bisacodyl 10mg suppository rectal RC PRN (00:55)
[2017-09-08] MEDS ORDERED: acetaminophen 325mg tablet PO PRN (00:55)
[2017-09-08] MEDS ORDERED: nitroGLYCERIN 0.4mg SUBLingual tab SL PRN ×2 (01:00)
[2017-09-08] MEDS ORDERED: LORazepam 0.5 MG tablet PO PRN (01:25)
[2017-09-08 01:46] LABS: BASOPHILS % (AUTO) 0.7 % (0-1); EOSINOPHILS # (AUTO) 0.2 X10'3 (0-0.9); EOSINOPHILS % (AUTO) 3.7 % (0-6); HEMATOCRIT 30.5 % (42.0-52.0); HEMOGLOBIN 9.9 g/dl (14.0-17.9); LYMPHOCYTES # (AUTO) 1.3 X10'3 (1.1-4.8); LYMPHOCYTES % (AUTO) 28.5 % (21-51); MEAN CORPUSCULAR HEMOGLOBIN 28.2 PG (27.0-31.0); MEAN CORPUSCULAR HGB CONC 32.5 % (33.0-36.5); MEAN CORPUSCULAR VOLUME 86.6 FL (78-98); MEAN PLATELET VOLUME 8.7 FL (7.4-10.4); MONOCYTES # (AUTO) 0.6 X10'3 (0-0.9); MONOCYTES % (AUTO) 11.9 % (2-12); NEUTROPHILS # (AUTO) 2.6 X10'3 (1.8-7.7); NEUTROPHILS % (AUTO) 55.2 % (42-75); PLATELET COUNT 195 X10'3 (140-440); RED BLOOD COUNT 3.52 X10'6 (4.70-6.10); WHITE BLOOD COUNT 4.7 X10'3 (4.5-11.0)
[2017-09-08 01:54] LABS: INR 1.1 INR; PARTIAL THROMBOPLASTIN TIME 32 SECONDS (22-32)
[2017-09-08 01:57] LABS: ALANINE AMINOTRANSFERASE 48 U/L (12-78); ALBUMIN 1.8 G/DL (3.4-5.0); ALBUMIN/GLOBULIN RATIO 0.4 (1.1-1.5); ALKALINE PHOSPHATASE 82 IU/L (46-116); ANION GAP 6 (8-16); ASPARTATE AMINO TRANSFERASE 25 U/L (10-37); BILIRUBIN,TOTAL 0.3 MG/DL (0.1-1.0); BLOOD UREA NITROGEN 23 MG/DL (7-18); BUN/CREATININE RATIO 18.4 (5.4-32.0); CALCIUM 8.4 MG/DL (8.5-10.1); CHLORIDE 102 MMOL/L (99-107); CREATININE 1.25 MG/DL (0.60-1.10); GLUCOSE 97 MG/DL (70-104); SODIUM 138 MMOL/L (135-145); TOTAL CARBON DIOXIDE 30.1 MMOL/L (24-32); TOTAL PROTEIN 6.3 G/DL (6.4-8.2); eGFR 56 ML/MIN
[2017-09-08] MEDS ORDERED: levoTHYROXINE 112mcg tablet PO SCH (07:00)
[2017-09-08] MEDS ORDERED: potassium chloride 10mEq CAPSULE.SA PO SCH (08:00)
[2017-09-08] MEDS: pantoprazole 40mg Tablet.DR PO SCH (08:03)
[2017-09-08] MEDS: aspirin 81mg tab.chew PO SCH (08:04)
[2017-09-08] MEDS: furosemide 20MG tablet PO SCH ×2 (08:04→19:27)
[2017-09-08] MEDS: atorvastatin 20mg tablet PO SCH (08:04)
[2017-09-08] MEDS: lisinopril 2.5mg tablet PO SCH (08:04)
[2017-09-08] MEDS ORDERED: VENL75CA55 PO (09:50)
[2017-09-08] MEDS: carVEDilol 3.125mg tablet PO SCH (19:27)
[2017-09-08] MEDS ORDERED: mirtazapine 15mg tablet PO SCH (21:00)
[2017-09-09] MEDS ORDERED: HYDROcodone/acetaminophen 5mg/325mg tablet PO PRN (01:00)
[2017-09-09 02:00] VITALS: BP 103/75
[2017-09-09 05:12] LABS: BASOPHILS % (AUTO) 0.9 % (0-1); EOSINOPHILS # (AUTO) 0.2 X10'3 (0-0.9); EOSINOPHILS % (AUTO) 4.4 % (0-6); HEMATOCRIT 30.8 % (42.0-52.0); HEMOGLOBIN 10.1 g/dl (14.0-17.9); LYMPHOCYTES % (AUTO) 20.5 % (21-51); MEAN CORPUSCULAR HEMOGLOBIN 28.3 PG (27.0-31.0); MEAN CORPUSCULAR HGB CONC 32.7 % (33.0-36.5); MEAN CORPUSCULAR VOLUME 86.4 FL (78-98); MEAN PLATELET VOLUME 8.4 FL (7.4-10.4); MONOCYTES # (AUTO) 0.6 X10'3 (0-0.9); MONOCYTES % (AUTO) 11.1 % (2-12); NEUTROPHILS # (AUTO) 3.2 X10'3 (1.8-7.7); NEUTROPHILS % (AUTO) 63.1 % (42-75); PLATELET COUNT 226 X10'3 (140-440); RED BLOOD COUNT 3.56 X10'6 (4.70-6.10); RED CELL DISTRIBUTION WIDTH 16.4 % (11.5-14.5); WHITE BLOOD COUNT 5.1 X10'3 (4.5-11.0)
[2017-09-09 05:22] LABS: ALANINE AMINOTRANSFERASE 46 U/L (12-78); ALBUMIN 2.4 G/DL (3.4-5.0); ALBUMIN/GLOBULIN RATIO 0.6 (1.1-1.5); ALKALINE PHOSPHATASE 91 IU/L (46-116); ANION GAP 4 (8-16); ASPARTATE AMINO TRANSFERASE 23 U/L (10-37); BILIRUBIN,TOTAL 0.3 MG/DL (0.1-1.0); BLOOD UREA NITROGEN 30 MG/DL (7-18); BUN/CREATININE RATIO 24.2 (5.4-32.0); CALCIUM 8.5 MG/DL (8.5-10.1); CHLORIDE 101 MMOL/L (99-107); CREATININE 1.24 MG/DL (0.60-1.10); GLUCOSE 102 MG/DL (70-104); MAGNESIUM 1.9 MG/DL (1.5-2.4); POTASSIUM 4.1 MMOL/L (3.5-5.1); SODIUM 134 MMOL/L (135-145); TOTAL CARBON DIOXIDE 29.1 MMOL/L (24-32); TOTAL PROTEIN 6.4 G/DL (6.4-8.2); eGFR 56 ML/MIN
[2017-09-09 06:00] VITALS: BP 103/72
[2017-09-09] MEDS ORDERED: levoTHYROXINE 125mcg tablet PO SCH (07:00)
[2017-09-09] MEDS ORDERED: potassium chloride 10mEq ER tablet PO SCH (08:00)
[2017-09-09] MEDS ORDERED: venlafaxine XR 75mg capsule (Q24H) PO SCH (08:00)
[2017-09-09] MEDS: lisinopril 2.5mg tablet PO SCH (08:49)
[2017-09-09] MEDS: atorvastatin 20mg tablet PO SCH (08:50)
[2017-09-09] MEDS: pantoprazole 40mg Tablet.DR PO SCH (08:50)
[2017-09-09] MEDS: aspirin 81mg tab.chew PO SCH (08:50)
[2017-09-09] MEDS: carVEDilol 3.125mg tablet PO SCH (08:50)
[2017-09-09] MEDS: furosemide 20MG tablet PO SCH (08:51)
[2017-09-09 08:54] VITALS: BP 103/72
[2017-09-09 11:00] VITALS: BP 100/69
[2017-09-09] MEDS ORDERED: ATOR20TA PO (14:58)
[2017-09-09] MEDS ORDERED: MIRT15TA PO (14:58)
[2017-09-09] MEDS ORDERED: VENL75TA90 PO (19:17)
== END 2017-09-09 13:10 ==
LOC: PCU 3S 23:18
PROVIDERS: ADMIT Emergency Medicine; ATTEND Family Medicine
DX: R07.89 Other chest pain (principal); E03.9 Hypothyroidism, unspecified; E78.5 Hyperlipidemia, unspecified; I25.10 Atherosclerotic heart disease of native coronary artery without angina pectoris; K21.9 Gastro-esophageal reflux disease without esophagitis; R45.851 Suicidal ideations; I12.9 Hypertensive chronic kidney disease with stage 1 through stage 4 chronic kidney disease, or unspecified chronic kidney disease; N18.2 Chronic kidney disease, stage 2 (mild); Z95.1 Presence of aortocoronary bypass graft; Z79.82 Long term (current) use of aspirin; Z79.899 Other long term (current) drug therapy
CPT/HCPCS: 36415; 73630; 80053; 83735; 84443; 84484; 85025; 85610; 85730; 87070; 93005; G0378

== ENCOUNTER 2017-09-09 11:53 | Inpatient (IN) | payer MEDICARE, BC ==
[~2017-09-09] VITALS: Ht 171.4 cm; Wt 65.5 kg
[~2017-09-09 11:53] MED LIST changes: -ENOX40SY7 SUBCUT; -LEVO500T89 PO; +VENL75CA55 PO
[2017-09-09] MEDS ORDERED: ATOR20TA PO (14:58)
[2017-09-09] MEDS ORDERED: MIRT15TA PO (14:58)
[2017-09-09] MEDS ORDERED: magnesium hydroxide 30ml (MOM) UD suspension PO PRN (15:05)
[2017-09-09] MEDS ORDERED: acetaminophen 325mg tablet PO PRN ×2 (15:05)
[2017-09-09] MEDS ORDERED: mag hydrox/Alum hydrox/simeth 30ml oral suspension PO PRN (15:05)
[2017-09-09 15:15] VITALS: BP 101/68
[2017-09-09] MEDS: Protein Shake (high protein) 240ml (8oz) cup PO SCH (18:00)
[2017-09-09] MEDS ORDERED: LIDOcaine 5% patch TP PRN (19:15)
[2017-09-09] MEDS ORDERED: VENL75TA90 PO (19:17)
[2017-09-09] MEDS ORDERED: nitroGLYCERIN 0.4mg SUBLingual tab SL PRN (19:20)
[2017-09-09] MEDS: HYDROcodone/acetaminophen 5mg/325mg tablet PO PRN (19:23)
[2017-09-09 20:00] VITALS: BP 106/74
[2017-09-09] MEDS: furosemide 20MG tablet PO SCH (20:14)
[2017-09-09] MEDS: carVEDilol 3.125mg tablet PO SCH (20:14)
[2017-09-09] MEDS: mirtazapine 15mg tablet PO SCH (20:14)
[2017-09-10] MEDS: levoTHYROXINE 25mcg tablet PO SCH (07:12)
[2017-09-10] MEDS: levoTHYROXINE 112mcg tablet PO SCH (07:12)
[2017-09-10] MEDS: pantoprazole 40mg Tablet.DR PO SCH (07:13)
[2017-09-10 07:56] LABS: CHOLESTEROL 128 MG/DL (0-200); HDL CHOLESTEROL 43 MG/DL (35-60); LDL CHOLESTEROL 71 MG/DL (50-100); TRIGLYCERIDES 100 MG/DL (20-135)
[2017-09-10 08:00] VITALS: BP 113/77
[2017-09-10] MEDS ORDERED: venlafaxine XR 75mg capsule (Q24H) PO SCH (08:00)
[2017-09-10] MEDS: Protein Shake (high protein) 240ml (8oz) cup PO SCH ×3 (08:00→18:47)
[2017-09-10] MEDS: atorvastatin 20mg tablet PO SCH (09:04)
[2017-09-10] MEDS: aspirin 81mg tablet.DR PO SCH (09:04)
[2017-09-10] MEDS: furosemide 20MG tablet PO SCH ×2 (09:04→20:38)
[2017-09-10] MEDS: carVEDilol 3.125mg tablet PO SCH ×2 (09:04→20:00)
[2017-09-10] MEDS: potassium chloride 10mEq ER tablet PO SCH (09:04)
[2017-09-10] MEDS: lisinopril 5mg tablet PO SCH (09:04)
[2017-09-10] MEDS: venlafaxine XR 75mg capsule (Q24H) PO SCH (09:09)
[2017-09-10 19:21] VITALS: BP 90/65
[2017-09-10] MEDS: mirtazapine 15mg tablet PO SCH (21:45)
[2017-09-10] MEDS: LORazepam 1 MG tablet PO PRN (21:46)
[2017-09-11] MEDS: levoTHYROXINE 25mcg tablet PO SCH (07:26)
[2017-09-11] MEDS: levoTHYROXINE 112mcg tablet PO SCH (07:26)
[2017-09-11] MEDS: pantoprazole 40mg Tablet.DR PO SCH (07:27)
[2017-09-11 08:00] VITALS: BP 112/72
[2017-09-11] MEDS ORDERED: venlafaxine XR 75mg capsule (Q24H) PO SCH (08:00)
[2017-09-11] MEDS: carVEDilol 3.125mg tablet PO SCH ×2 (08:13→19:43)
[2017-09-11] MEDS: venlafaxine XR 75mg capsule (Q24H) PO SCH (08:13)
[2017-09-11] MEDS: aspirin 81mg tablet.DR PO SCH (08:13)
[2017-09-11] MEDS: atorvastatin 20mg tablet PO SCH (08:13)
[2017-09-11] MEDS: furosemide 20MG tablet PO SCH ×2 (08:13→19:45)
[2017-09-11] MEDS: lisinopril 5mg tablet PO SCH (08:13)
[2017-09-11] MEDS: potassium chloride 10mEq ER tablet PO SCH (08:13)
[2017-09-11] MEDS: Protein Shake (high protein) 240ml (8oz) cup PO SCH ×3 (08:14→18:00)
[2017-09-11 19:40] VITALS: BP 105/68
[2017-09-11] MEDS: LORazepam 1 MG tablet PO PRN (21:37)
[2017-09-11] MEDS: mirtazapine 15mg tablet PO SCH (21:38)
[2017-09-12] MEDS: pantoprazole 40mg Tablet.DR PO SCH (07:53)
[2017-09-12] MEDS: levoTHYROXINE 25mcg tablet PO SCH (07:53)
[2017-09-12] MEDS: levoTHYROXINE 112mcg tablet PO SCH (07:53)
[2017-09-12 08:00] VITALS: BP 115/78
[2017-09-12] MEDS: Protein Shake (high protein) 240ml (8oz) cup PO SCH ×4 (08:13→19:00)
[2017-09-12] MEDS: aspirin 81mg tablet.DR PO SCH (08:13)
[2017-09-12] MEDS: venlafaxine XR 75mg capsule (Q24H) PO SCH (08:13)
[2017-09-12] MEDS: potassium chloride 10mEq ER tablet PO SCH (08:13)
[2017-09-12] MEDS: carVEDilol 3.125mg tablet PO SCH ×2 (08:13→20:00)
[2017-09-12] MEDS: furosemide 20MG tablet PO SCH ×2 (08:13→20:00)
[2017-09-12] MEDS: lisinopril 5mg tablet PO SCH (08:13)
[2017-09-12] MEDS: atorvastatin 20mg tablet PO SCH (08:13)
[2017-09-12 19:52] VITALS: BP 95/67
[2017-09-12] MEDS: mirtazapine 15mg tablet PO SCH (21:12)
[2017-09-13] MEDS: LORazepam 1 MG tablet PO PRN ×2 (02:02→21:27)
[2017-09-13 07:55] VITALS: BP 101/69
[2017-09-13] MEDS: lisinopril 5mg tablet PO SCH (08:00)
[2017-09-13] MEDS: levoTHYROXINE 25mcg tablet PO SCH (08:22)
[2017-09-13] MEDS: pantoprazole 40mg Tablet.DR PO SCH (08:22)
[2017-09-13] MEDS: levoTHYROXINE 112mcg tablet PO SCH (08:23)
[2017-09-13] MEDS: atorvastatin 20mg tablet PO SCH (08:23)
[2017-09-13] MEDS: aspirin 81mg tablet.DR PO SCH (08:23)
[2017-09-13] MEDS: potassium chloride 10mEq ER tablet PO SCH (08:24)
[2017-09-13] MEDS: furosemide 20MG tablet PO SCH ×2 (08:24→21:27)
[2017-09-13] MEDS: carVEDilol 3.125mg tablet PO SCH ×2 (08:24→21:27)
[2017-09-13] MEDS: venlafaxine XR 75mg capsule (Q24H) PO SCH (08:25)
[2017-09-13] MEDS: Protein Shake (high protein) 240ml (8oz) cup PO SCH ×2 (13:45→18:00)
[2017-09-13 20:58] VITALS: BP 118/73
[2017-09-13] MEDS: mirtazapine 15mg tablet PO SCH (21:27)
[2017-09-14] MEDS: LORazepam 1 MG tablet PO PRN (03:47)
[2017-09-14] MEDS: levoTHYROXINE 112mcg tablet PO SCH (07:48)
[2017-09-14] MEDS: potassium chloride 10mEq ER tablet PO SCH (07:48)
[2017-09-14] MEDS: furosemide 20MG tablet PO SCH ×2 (07:49→20:34)
[2017-09-14] MEDS: aspirin 81mg tablet.DR PO SCH (07:49)
[2017-09-14] MEDS: atorvastatin 20mg tablet PO SCH (07:49)
[2017-09-14] MEDS: levoTHYROXINE 25mcg tablet PO SCH (07:49)
[2017-09-14] MEDS: pantoprazole 40mg Tablet.DR PO SCH (07:49)
[2017-09-14] MEDS: carVEDilol 3.125mg tablet PO SCH ×2 (07:49→20:34)
[2017-09-14 08:24] VITALS: BP 110/78
[2017-09-14] MEDS: Protein Shake (high protein) 240ml (8oz) cup PO SCH ×3 (08:37→18:00)
[2017-09-14] MEDS: venlafaxine XR 75mg capsule (Q24H) PO SCH (08:37)
[2017-09-14 20:00] VITALS: BP 117/72
[2017-09-14] MEDS: mirtazapine 15mg tablet PO SCH (20:34)
[2017-09-15] MEDS: LORazepam 1 MG tablet PO PRN ×2 (03:37→23:34)
[2017-09-15 08:00] VITALS: BP 110/79
[2017-09-15] MEDS: Protein Shake (high protein) 240ml (8oz) cup PO SCH ×3 (08:00→18:00)
[2017-09-15] MEDS: levoTHYROXINE 112mcg tablet PO SCH (08:07)
[2017-09-15] MEDS: levoTHYROXINE 25mcg tablet PO SCH (08:07)
[2017-09-15] MEDS: pantoprazole 40mg Tablet.DR PO SCH (08:08)
[2017-09-15] MEDS: carVEDilol 3.125mg tablet PO SCH ×2 (08:08→20:59)
[2017-09-15] MEDS: venlafaxine XR 75mg capsule (Q24H) PO SCH (08:08)
[2017-09-15] MEDS: furosemide 20MG tablet PO SCH ×2 (08:08→20:59)
[2017-09-15] MEDS: aspirin 81mg tablet.DR PO SCH (08:08)
[2017-09-15] MEDS: potassium chloride 10mEq ER tablet PO SCH (08:08)
[2017-09-15] MEDS: atorvastatin 20mg tablet PO SCH (08:08)
[2017-09-15 19:00] VITALS: BP 116/75
[2017-09-15] MEDS: mirtazapine 15mg tablet PO SCH (21:00)
[2017-09-16] MEDS: levoTHYROXINE 112mcg tablet PO SCH (07:26)
[2017-09-16] MEDS: levoTHYROXINE 25mcg tablet PO SCH (07:26)
[2017-09-16] MEDS: pantoprazole 40mg Tablet.DR PO SCH (07:26)
[2017-09-16 08:00] VITALS: BP 117/81
[2017-09-16] MEDS: venlafaxine XR 75mg capsule (Q24H) PO SCH (08:21)
[2017-09-16] MEDS: furosemide 20MG tablet PO SCH ×2 (08:21→20:47)
[2017-09-16] MEDS: carVEDilol 3.125mg tablet PO SCH ×2 (08:21→20:47)
[2017-09-16] MEDS: atorvastatin 20mg tablet PO SCH (08:21)
[2017-09-16] MEDS: potassium chloride 10mEq ER tablet PO SCH (08:21)
[2017-09-16] MEDS: aspirin 81mg tablet.DR PO SCH (08:22)
[2017-09-16] MEDS: Protein Shake (high protein) 240ml (8oz) cup PO SCH ×3 (08:29→18:42)
[2017-09-16] MEDS: HYDROcodone/acetaminophen 5mg/325mg tablet PO PRN ×3 (12:52→23:37)
[2017-09-16] MEDS ORDERED: LORazepam 0.5 MG tablet PO PRN (16:45)
[2017-09-16 19:00] VITALS: BP 112/80
[2017-09-16] MEDS: LORazepam 1 MG tablet PO PRN (20:47)
[2017-09-16] MEDS: mirtazapine 15mg tablet PO SCH (20:47)
[2017-09-17] MEDS: levoTHYROXINE 25mcg tablet PO SCH (07:22)
[2017-09-17] MEDS: levoTHYROXINE 112mcg tablet PO SCH (07:22)
[2017-09-17] MEDS: pantoprazole 40mg Tablet.DR PO SCH (07:22)
[2017-09-17 08:00] VITALS: BP 123/82
[2017-09-17] MEDS: carVEDilol 3.125mg tablet PO SCH ×2 (08:05→19:48)
[2017-09-17] MEDS: furosemide 20MG tablet PO SCH ×2 (08:06→19:48)
[2017-09-17] MEDS: Protein Shake (high protein) 240ml (8oz) cup PO SCH ×3 (08:06→18:48)
[2017-09-17] MEDS: potassium chloride 10mEq ER tablet PO SCH (08:06)
[2017-09-17] MEDS: venlafaxine XR 75mg capsule (Q24H) PO SCH (08:06)
[2017-09-17] MEDS: aspirin 81mg tablet.DR PO SCH (08:06)
[2017-09-17] MEDS: atorvastatin 20mg tablet PO SCH (08:06)
[2017-09-17 19:47] VITALS: BP 113/78
[2017-09-17] MEDS: mirtazapine 15mg tablet PO SCH (21:21)
[2017-09-18] MEDS: levoTHYROXINE 25mcg tablet PO SCH (07:14)
[2017-09-18] MEDS: levoTHYROXINE 112mcg tablet PO SCH (07:14)
[2017-09-18] MEDS: pantoprazole 40mg Tablet.DR PO SCH (07:15)
[2017-09-18 08:00] VITALS: BP 118/86
[2017-09-18] MEDS: furosemide 20MG tablet PO SCH (08:13)
[2017-09-18] MEDS: venlafaxine XR 75mg capsule (Q24H) PO SCH (08:13)
[2017-09-18] MEDS: atorvastatin 20mg tablet PO SCH (08:13)
[2017-09-18] MEDS: potassium chloride 10mEq ER tablet PO SCH (08:13)
[2017-09-18] MEDS: carVEDilol 3.125mg tablet PO SCH (08:13)
[2017-09-18] MEDS: aspirin 81mg tablet.DR PO SCH (08:13)
[2017-09-18] MEDS: Protein Shake (high protein) 240ml (8oz) cup PO SCH (08:14)
[2017-09-18] MEDS ORDERED: MIRT15TA8 PO (11:25)
[2017-09-18] MEDS ORDERED: LIDO700A47 TP (11:25)
[2017-09-18] MEDS ORDERED: VENL75CA61 PO (11:25)
[2017-09-18] MEDS ORDERED: ATI0.5T PO (11:25)
[2017-09-18] MEDS ORDERED: HYDR-569 PO (11:25)
[2017-09-18] MEDS ORDERED: LEVO137T2 PO (11:25)
[2017-09-18] MEDS ORDERED: FURO-150 PO (11:25)
[2017-09-18] MEDS ORDERED: OMEP20TA23 PO (11:25)
[2017-09-18] MEDS ORDERED: POTA10TA15 PO (11:25)
== END 2017-09-18 14:30 | DRG 885 ==
LOC: ADULT MH 11:53
PROVIDERS: ADMIT Psychiatry & Neurology Psychiatry; ATTEND Psychiatry & Neurology Psychiatry
DX: F33.2 Major depressive disorder, recurrent severe without psychotic features (principal); R45.851 Suicidal ideations; E03.9 Hypothyroidism, unspecified; E78.5 Hyperlipidemia, unspecified; F02.80 Dementia in other diseases classified elsewhere, unspecified severity, without behavioral disturbance, psychotic disturbance, mood disturbance, and anxiety; F41.9 Anxiety disorder, unspecified; G30.9 Alzheimer's disease, unspecified; I07.1 Rheumatic tricuspid insufficiency; I12.9 Hypertensive chronic kidney disease with stage 1 through stage 4 chronic kidney disease, or unspecified chronic kidney disease; I25.10 Atherosclerotic heart disease of native coronary artery without angina pectoris; K21.9 Gastro-esophageal reflux disease without esophagitis; N18.2 Chronic kidney disease, stage 2 (mild); T58.9 Toxic effect of carbon monoxide from unspecified source; Z95.1 Presence of aortocoronary bypass graft; Z79.82 Long term (current) use of aspirin; Z79.899 Other long term (current) drug therapy
CPT/HCPCS: 36415; 80061; 87070; 97116; 97161; 99285

== ENCOUNTER 2020-04-17 10:56 | Emergency (ER) | payer MEDICARE, BC ==
[~2020-04-17] VITALS: Ht 172.7 cm; Wt 73.0 kg
[~2020-04-17 10:56] MED LIST changes: +ASPI81TA44 PO; -ASPI81TA46 PO; +ATI0.5T PO; +ATOR20TA PO; +HYDR-4383 PO; +LIDO700A47 TP; -LORA-269 PO; +MIRT15TA8 PO; +SIMV-45 PO; -SIMV40TA4 PO; -VENL75CA55 PO; +VENL75CA61 PO
[2020-04-17 11:17] LABS: BASOPHILS # (AUTO) 0.1 X10'3 (0-0.2); BASOPHILS % (AUTO) 1.3 % (0-1); EOSINOPHILS # (AUTO) 0.2 X10'3 (0-0.9); EOSINOPHILS % (AUTO) 2.8 % (0-6); HEMATOCRIT 41.2 % (42.0-52.0); HEMOGLOBIN 13.7 g/dl (14.0-17.9); LYMPHOCYTES # (AUTO) 1.1 X10'3 (1.1-4.8); LYMPHOCYTES % (AUTO) 20.2 % (21-51); MEAN CORPUSCULAR HEMOGLOBIN 28.7 PG (27.0-31.0); MEAN CORPUSCULAR HGB CONC 33.3 g/dL (33.0-36.5); MEAN PLATELET VOLUME 10.1 FL (7.4-10.4); MONOCYTES # (AUTO) 0.5 X10'3 (0-0.9); MONOCYTES % (AUTO) 8.2 % (2-12); NEUTROPHILS # (AUTO) 3.8 X10'3 (1.8-7.7); NEUTROPHILS % (AUTO) 67.5 % (42-75); PLATELET COUNT 162 X10'3 (140-440); RED BLOOD COUNT 4.79 X10'6 (4.70-6.10); RED CELL DISTRIBUTION WIDTH 14.8 % (11.5-14.5); WHITE BLOOD COUNT 5.7 X10'3 (4.5-11.0)
[2020-04-17 11:32] LABS: ALANINE AMINOTRANSFERASE 20 U/L (12-78); ALBUMIN 4.1 G/DL (3.4-5.0); ALKALINE PHOSPHATASE 72 IU/L (46-116); ANION GAP 10 (8-16); ASPARTATE AMINO TRANSFERASE 20 U/L (10-37); BILIRUBIN,TOTAL 0.8 MG/DL (0.1-1.0); BLOOD UREA NITROGEN 17 MG/DL (7-18); BUN/CREATININE RATIO 14.5 (5.4-32.0); CALCIUM 9.2 MG/DL (8.5-10.1); CHLORIDE 105 MMOL/L (99-107); CREATININE 1.17 MG/DL (0.60-1.10); GLUCOSE 103 MG/DL (70-104); POTASSIUM 4.4 MMOL/L (3.5-5.1); SODIUM 141 MMOL/L (135-145); TOTAL CARBON DIOXIDE 25.8 MMOL/L (24-32); TOTAL PROTEIN 8.1 G/DL (6.4-8.2); eGFR 60 ML/MIN
[2020-04-17 12:44] VITALS: BP 140/88
== END 2020-04-17 12:49 | disposition home or self-care (01) ==
LOC: ER 10:57
DX: R06.02 Shortness of breath (principal); R53.83 Other fatigue; I25.10 Atherosclerotic heart disease of native coronary artery without angina pectoris; E78.00 Pure hypercholesterolemia, unspecified; I10 Essential (primary) hypertension; K21.9 Gastro-esophageal reflux disease without esophagitis; Z90.89 Acquired absence of other organs; Z98.890 Other specified postprocedural states; Z60.2 Problems related to living alone; Z79.82 Long term (current) use of aspirin; Z79.899 Other long term (current) drug therapy
CPT/HCPCS: 36415; 71045; 80053; 83880; 84484; 85025; 93005; 99285

== ENCOUNTER 2022-08-28 11:24 | Emergency (ER) | payer OTHER, MEDICARE ==
[~2022-08-28] VITALS: Ht 170.2 cm; Wt 69.0 kg
[~2022-08-28 11:24] MED LIST changes: -ATI0.5T PO; +CARB1DRO EACHEYE; +CARV-49 PO; -CARV3.122 PO; +CETI10TA19 PO; +FINA5TAB3 PO; +FLO0.4C PO; -HYDR-4383 PO; +KETO-96 EACHEYE; +LIDO1ADH67 SUBD; -LIDO700A47 TP; -LISI-604 PO; -MIRT15TA8 PO; +POTA-366 PO; -POTA10TA15 PO; -SIMV-45 PO; -VENL75CA61 PO
[2022-08-28] MEDS ORDERED: normal saline 1000ML IV soln IVB ONE (12:55)
[2022-08-28] MEDS ORDERED: ondansetron/PF 4mg/2ml inj IV ONE (12:55)
[2022-08-28 12:59] LABS: BASOPHILS % (AUTO) 0.3 % (0-1); EOSINOPHILS # (AUTO) 0.1 X10'3 (0-0.9); EOSINOPHILS % (AUTO) 1.3 % (0-6); HEMATOCRIT 42.5 % (42.0-52.0); HEMOGLOBIN 14.1 g/dl (14.0-17.9); LYMPHOCYTES # (AUTO) 1.2 X10'3 (1.1-4.8); LYMPHOCYTES % (AUTO) 16.9 % (21-51); MEAN CORPUSCULAR HGB CONC 33.1 g/dL (33.0-36.5); MEAN CORPUSCULAR VOLUME 90.6 FL (78-98); MEAN PLATELET VOLUME 8.6 FL (7.4-10.4); MONOCYTES # (AUTO) 0.8 X10'3 (0-0.9); MONOCYTES % (AUTO) 12.1 % (2-12); NEUTROPHILS # (AUTO) 4.7 X10'3 (1.8-7.7); NEUTROPHILS % (AUTO) 69.4 % (42-75); PLATELET COUNT 162 X10'3 (140-440); RED BLOOD COUNT 4.69 X10'6 (4.70-6.10); RED CELL DISTRIBUTION WIDTH 14.8 % (11.5-14.5); WHITE BLOOD COUNT 6.8 X10'3 (4.5-11.0)
[2022-08-28 13:02] LABS: CLARITY,URINE CLEAR (Clear); COLOR,URINE YELLOW (Yellow); GLUCOSE, URINE NEGATIVE (Neg); KETONES,URINE NEGATIVE (Neg); LEUKOCYTE ESTERASE ,URINE NEGATIVE (Neg); NITRITES, URINE NEGATIVE (Neg); OCCULT BLOOD,URINE NEGATIVE (Neg); PH,URINE 6.5 (4.8-8.0); PROTEIN,URINE TRACE mg/dl (Neg); UA COLLECTION TYPE CLN CATCH MIDSTREAM; UROBILINOGEN,URINE 0.2 E.U/dL (0.2-1.0)
[2022-08-28 13:15] LABS: BACTERIA,URINE NONE SEEN /HPF (Neg); RBC,URINE NONE SEEN /HPF (0-2); SQUAMOUS EPITHELIAL CELL,UR NONE SEEN /LPF (FEW); WBC,URINE 0-4 /HPF (0-4)
[2022-08-28 13:19] LABS: ALANINE AMINOTRANSFERASE 18 U/L (12-78); ALBUMIN 3.5 G/DL (3.4-5.0); ALBUMIN/GLOBULIN RATIO 0.9 (1.1-1.5); ALKALINE PHOSPHATASE 78 IU/L (46-116); ANION GAP 7 (8-16); ASPARTATE AMINO TRANSFERASE 19 U/L (10-37); BILIRUBIN,TOTAL 0.7 MG/DL (0.1-1.0); BLOOD UREA NITROGEN 13 MG/DL (7-18); BUN/CREATININE RATIO 10.8 (10.0-20.0); CALCIUM 8.8 MG/DL (8.5-10.1); CHLORIDE 100 MMOL/L (99-107); GLUCOSE 96 MG/DL (70-104); LIPASE 52 U/L (73-393); POTASSIUM 3.9 MMOL/L (3.5-5.1); SODIUM 137 MMOL/L (135-145); TOTAL PROTEIN 7.2 G/DL (6.4-8.2); eGFR 58 ML/MIN
[2022-08-28] MEDS ORDERED: iohexol 300mg/ml 100ml inj. ONE (13:20)
[2022-08-28] MEDS ORDERED: ONDA4TAB12 PO (14:12)
[2022-08-28 14:38] VITALS: BP 148/84
== END 2022-08-28 14:39 | disposition home or self-care (01) ==
LOC: ER 11:24
DX: R10.84 Generalized abdominal pain (principal); E78.00 Pure hypercholesterolemia, unspecified; I10 Essential (primary) hypertension; K21.9 Gastro-esophageal reflux disease without esophagitis; Z98.890 Other specified postprocedural states
CPT/HCPCS: 36415; 74177; 80053; 81001; 83605; 83690; 85025; 96374; 99285; J2405; J3490; J7030; Q9967

== ENCOUNTER 2022-09-18 08:58 | Emergency (ER) | payer OTHER, MEDICARE ==
[~2022-09-18] VITALS: Ht 172.7 cm; Wt 70.4 kg
[~2022-09-18 08:58] MED LIST changes: -FINA5TAB3 PO; +FINA5TAB38 PO; +ONDA4TAB12 PO
[2022-09-18 08:59] VITALS: BP 144/78
== END 2022-09-18 09:51 | disposition home or self-care (01) ==
LOC: ER 08:58
DX: T16.2XXA Foreign body in left ear, initial encounter (principal); I11.9 Hypertensive heart disease without heart failure; K21.9 Gastro-esophageal reflux disease without esophagitis; E78.00 Pure hypercholesterolemia, unspecified; E07.9 Disorder of thyroid, unspecified; Z79.899 Other long term (current) drug therapy; X58.XXXA Exposure to other specified factors, initial encounter; Y93.89 Activity, other specified; Y92.89 Other specified places as the place of occurrence of the external cause; Y99.8 Other external cause status
CPT/HCPCS: 99281

== ENCOUNTER 2023-05-17 08:26 | Outpatient (CLI) | payer MEDICARE ==
[2023-05-16 10:34] LABS: ANION GAP 11 (8-16); BLOOD UREA NITROGEN 22 MG/DL (7-18); BUN/CREATININE RATIO 15.6 (10.0-20.0); CALCIUM 8.8 MG/DL (8.5-10.1); CHLORIDE 105 MMOL/L (99-107); CREATININE 1.41 MG/DL (0.60-1.10); GLUCOSE 92 MG/DL (70-104); POTASSIUM 4.6 MMOL/L (3.5-5.1); SODIUM 141 MMOL/L (135-145); TOTAL CARBON DIOXIDE 24.7 MMOL/L (24-32); eGFR 48 ML/MIN
[2023-05-17] MEDS ORDERED: iohexol 300mg/ml 100ml inj. ONE (08:40)
== END 2023-05-17 23:59 | disposition home or self-care (01) ==
LOC: RAD 08:26
PROVIDERS: ATTEND Student in an Organized Health Care Education/Training Program
DX: D49.512 Neoplasm of unspecified behavior of left kidney (principal); K44.9 Diaphragmatic hernia without obstruction or gangrene; K80.11 Calculus of gallbladder with chronic cholecystitis with obstruction
CPT/HCPCS: 36415; 74178; 80048; J3490; Q9967

== ENCOUNTER 2023-12-02 07:35 | Emergency (ER) | payer MEDICARE ==
[~2023-12-02] VITALS: Ht 170.2 cm; Wt 67.0 kg
[~2023-12-02 07:35] MED LIST changes: +ONDA-243 PO; -ONDA4TAB12 PO
[2023-12-02 08:12] LABS: STREP A SCREEN NEGATIVE (Neg)
[2023-12-02] MEDS ORDERED: AZIT500T2 PO (08:39)
[2023-12-02] MEDS ORDERED: PRED20TA PO (08:39)
[2023-12-02 08:49] VITALS: BP 138/88; PULSE 88; RESP 18; TEMP 97.7; O2SAT 98
== END 2023-12-02 08:54 | disposition home or self-care (01) ==
LOC: ER 07:36
DX: J02.9 Acute pharyngitis, unspecified (principal); E78.00 Pure hypercholesterolemia, unspecified; I25.10 Atherosclerotic heart disease of native coronary artery without angina pectoris; I10 Essential (primary) hypertension; K21.9 Gastro-esophageal reflux disease without esophagitis; E07.9 Disorder of thyroid, unspecified; Z95.1 Presence of aortocoronary bypass graft; Z79.82 Long term (current) use of aspirin; Z79.2 Long term (current) use of antibiotics; Z79.52 Long term (current) use of systemic steroids; Z79.899 Other long term (current) drug therapy; Z90.49 Acquired absence of other specified parts of digestive tract; Z98.890 Other specified postprocedural states; Z60.2 Problems related to living alone
CPT/HCPCS: 87081; 87880; 99283

== ENCOUNTER 2023-12-08 07:31 | Emergency (ER) | payer MEDICARE ==
[~2023-12-08] VITALS: Ht 170.2 cm; Wt 67.0 kg
[2023-12-08 07:36] VITALS: TEMP 98.6
[2023-12-08] MEDS ORDERED: AMOX-117 PO (10:18)
[2023-12-08 11:13] VITALS: BP 103/66; PULSE 59; RESP 16; O2SAT 98
== END 2023-12-08 11:19 | disposition home or self-care (01) ==
LOC: ER 07:32
DX: R05.9 Cough, unspecified (principal); I25.10 Atherosclerotic heart disease of native coronary artery without angina pectoris; E78.00 Pure hypercholesterolemia, unspecified; I10 Essential (primary) hypertension; K21.9 Gastro-esophageal reflux disease without esophagitis; Z79.2 Long term (current) use of antibiotics; Z79.899 Other long term (current) drug therapy; Z79.82 Long term (current) use of aspirin; Z98.890 Other specified postprocedural states; Z95.1 Presence of aortocoronary bypass graft; Z87.891 Personal history of nicotine dependence
CPT/HCPCS: 71045; 99283

== ENCOUNTER 2023-12-10 15:08 | Emergency (ER) | payer MEDICARE ==
[~2023-12-10] VITALS: Ht 170.2 cm; Wt 66.3 kg
[~2023-12-10 15:08] MED LIST changes: +AMOX-117 PO
[2023-12-10 16:20] VITALS: BP 136/80; PULSE 74; RESP 18; TEMP 98.2; O2SAT 97
== END 2023-12-10 16:22 | disposition home or self-care (01) ==
LOC: ER 15:08
DX: J06.9 Acute upper respiratory infection, unspecified (principal); I25.10 Atherosclerotic heart disease of native coronary artery without angina pectoris; K21.9 Gastro-esophageal reflux disease without esophagitis; I10 Essential (primary) hypertension; E78.00 Pure hypercholesterolemia, unspecified; Z79.899 Other long term (current) drug therapy; Z79.82 Long term (current) use of aspirin; Z79.2 Long term (current) use of antibiotics; Z98.890 Other specified postprocedural states; Z95.1 Presence of aortocoronary bypass graft
CPT/HCPCS: 99281

== ENCOUNTER → 2024-05-28 | Outpatient (CLI) | payer OTHER ==
[~2024-05-28] MED LIST changes: -AMOX-117 PO
== END | disposition home or self-care (01) ==
LOC: RAD 10:18
PROVIDERS: ATTEND Physician Assistant
DX: M43.16 Spondylolisthesis, lumbar region (principal); M47.816 Spondylosis without myelopathy or radiculopathy, lumbar region; M48.061 Spinal stenosis, lumbar region without neurogenic claudication
CPT/HCPCS: 72131

== ENCOUNTER 2024-06-13 09:48 | Outpatient (CLI) | payer OTHER ==
[~2024-06-13 09:48] MED LIST changes: -FLO0.4C PO; +TAMS-55 PO
== END 2024-06-13 23:59 | disposition home or self-care (01) ==
LOC: RAD 09:48
PROVIDERS: ATTEND Physician Assistant
DX: M47.817 Spondylosis without myelopathy or radiculopathy, lumbosacral region (principal); M54.50 Low back pain, unspecified
CPT/HCPCS: 72110

== ENCOUNTER 2024-06-17 13:25 | Outpatient (CLI) | payer OTHER | END 2024-06-17 23:59 | disposition home or self-care (01) | LOC: RAD 13:25 | PROVIDERS: ATTEND Physician Assistant | DX: M47.814 Spondylosis without myelopathy or radiculopathy, thoracic region (principal); M41.86 Other forms of scoliosis, lumbar region; M43.06 Spondylolysis, lumbar region; M43.8X4 Other specified deforming dorsopathies, thoracic region; M48.04 Spinal stenosis, thoracic region | CPT/HCPCS: 72128 ==